=== PATIENT | male | born 1985 | race Hispanic/Latino ===

== ENCOUNTER 2020-05-04 21:35 | Inpatient (IN) | payer BC, SELFPAY ==
[2020-05-04] MEDS ORDERED: IPRATROPIUM BROM 0.5MG/2.5ML ONE (22:03)
[2020-05-04] MEDS ORDERED: NA CHLORIDE 0.9% 2,000 ML ONE (22:04)
[2020-05-04] MEDS ORDERED: CEFTRIAXONE/SWI 1gm 1 GM/10 ML SYR ONE (22:04)
[2020-05-04] MEDS ORDERED: AZITHROMYCIN 500 MG INJ IVPB ONE (22:04)
[2020-05-04] MEDS ORDERED: dexAMETHasone 10 MG/ML VIAL ONE (22:04)
[2020-05-04] MEDS ORDERED: NA CHLORIDE 0.9% 250 ML ONE (22:04)
[2020-05-04 22:22] LABS: Absolute Lymphocytes (CBC) 2.1 K/uL (0.7-4.9); Basophils % 0.3 % (0-1.3); Hematocrit 39.6 % (39.6-49.0); Lymphocytes % 8.6 % (15.3-44.8); MPV 8.2 fL (7.6-11.3); RBC Red Blood Cell Count 4.48 M/uL (4.33-5.43)
[2020-05-04] MEDS ORDERED: BUDESONIDE 0.25 MG/2 ML NEB ONE (22:28)
[2020-05-04 22:40] LABS: Protime INR 1.22
[2020-05-04 22:45] LABS: ALT/SGPT 65 U/L (12-78); AST/SGOT 70 U/L (15-37); Albumin 2.6 g/dL (3.4-5.0); Alkaline Phosphatase 107 U/L (45-117); Amylase 35 U/L (25-115); BUN Blood Urea Nitrogen 30 mg/dL (7-18); Bicarbonate 26 mmol/L (21-32); Bilirubin Direct 0.3 mg/dL (0-0.2); Bilirubin Total 0.6 mg/dL (0.2-1.0); CKMB Creatine Kinase MB < 1.0 ng/mL (0.3-3.6); Creatine Phosphokinase 153 U/L (39-308); Glucose Level 161 mg/dL (74-106); Lipase 101 U/L (73-393); NT PRO-BNP 1702 pg/mL (<125); Potassium 3.6 mmol/L (3.5-5.1); Protein, Total 7.9 g/dL (6.4-8.2); Sodium Level 128 mmol/L (136-145)
--- NOTE | 2020-05-04 23:21 | EDPHYS ---
Physician Documentation [facility] Name: Gil Yarbrough Age: 34 yrs Sex: Male : 1985 Arrival Date: 05/04/2020 Time: 21:36 Bed 2 Private MD: ED Physician Dickson Mejia HPI: 05/04 21:59 This 34 yrs old Male presents to ER via EMS with complaints of Respiratory mh7 Distress. 21:59 The patient has shortness of breath at rest. Onset: The symptoms/episode began/occurred mh7 4 day(s) ago, and became worse today. Duration: The symptoms are continuous, and are steadily getting worse. The patient's shortness of breath is aggravated by exertion, is alleviated by nothing. Associated signs and symptoms: Pertinent positives: productive cough, COVID 19 positive, Pertinent negatives: chest pain, non-productive cough, diaphoresis, dizziness, fever, hemoptysis, loss of consciousness, nausea, numbness in extremities, visual changes, vomiting. Severity of symptoms: At their worst the symptoms were severe today, in the emergency department the symptoms have improved markedly. The patient has been recently seen by a physician: the patient's primary care provider. Patient states that he has had SOB for 4 days that has progressively worsened. He tested positive for COVID 19 one week ago. EMS reported low O2 saturation in 40"s at scene which improved to 90"s on non rebreather.. Historical: - Allergies: 22:02 No Known Allergies; rr5 - PMHx: 22:02 Hypertension; COVID-19; rr5 - PSHx: 22:02 None; rr5 - Immunization history:: Adult Immunizations up to date. - Social history:: Smoking status: Patient reports the use of cigarette tobacco products, 2 CIGS PER DAY. ROS: 21:59 Constitutional: Negative for fever, chills, and weight loss, Eyes: Negative for injury, mh7 pain, redness, and discharge, ENT: Negative for injury, pain, and discharge, Neck: Negative for injury, pain, and swelling, Cardiovascular: Negative for chest pain, palpitations, and edema, Abdomen/GI: Negative for abdominal pain, nausea, vomiting, diarrhea, and constipation, Back: Negative for injury and pain, : Negative for injury, bleeding, discharge, and swelling, MS/Extremity: Negative for injury and deformity, Skin: Negative for injury, rash, and discoloration, Neuro: Negative for headache, weakness, numbness, tingling, and seizure, Psych: Negative for depression, anxiety, suicide ideation, homicidal ideation, and hallucinations, Allergy/Immunology: Negative for hives, rash, and allergies, Endocrine: Negative for neck swelling, polydipsia, polyuria, polyphagia, and marked weight changes, Hematologic/Lymphatic: Negative for swollen nodes, abnormal bleeding, and unusual bruising. Exam: 21:59 Head/Face: Normocephalic, atraumatic. Eyes: Pupils equal round and reactive to light, mh7 extra-ocular motions intact. Lids and lashes normal. Conjunctiva and sclera are non-icteric and not injected. Cornea within normal limits. Periorbital areas with no swelling, redness, or edema. Neck: Trachea midline, no thyromegaly or masses palpated, and no cervical lymphadenopathy. Supple, full range of motion without nuchal rigidity, or vertebral point tenderness. No Meningismus. Chest/axilla: Normal chest wall appearance and motion. Nontender with no deformity. No lesions are appreciated. 21:59 Abdomen/GI: Soft, non-tender, with normal bowel sounds. No distension or tympany. No guarding or rebound. No evidence of tenderness throughout. Back: No spinal tenderness. No costovertebral tenderness. Full range of motion. Skin: Warm, dry with normal turgor. Normal color with no rashes, no lesions, and no evidence of cellulitis. MS/ Extremity: Pulses equal, no cyanosis. Neurovascular intact. Full, normal range of motion. Neuro: Awake and alert, GCS 15, oriented to person, place, time, and situation. Cranial nerves II-XII grossly intact. Motor strength 5/5 in all extremities. Sensory grossly intact. Cerebellar exam normal. Normal gait. Psych: Awake, alert, with orientation to person, place and time. Behavior, mood, and affect are within normal limits. 21:59 Constitutional: The patient appears alert, awake, obese, in obvious distress, mildly distressed. 21:59 Cardiovascular: Rate: tachycardic, Rhythm: regular, Pulses: no pulse deficits are appreciated, Heart sounds: normal, normal S1and S2, Edema: is not appreciated, JVD: is not appreciated. 21:59 Respiratory: moderate respiratory distress is noted, Respirations: tachypnea, that is mild, Breath sounds: rhonchi, that are moderate, are scattered. 22:22 ECG was reviewed by the Attending Physician. [facility] Vital Signs: 21:49 Weight 156.49 kg; rr5 22:03 BP 127 / 88; Pulse 115; Resp 40; Temp 98.7; Pulse Ox 88% ; rr5 22:30 BP 127 / 88; Pulse 107; Resp 39; Pulse Ox 98% on 60% BiPAP; rr5 05/05 00:56 BP 127 / 92; Pulse 99; Resp 30; Pulse Ox 99% on 70% BiPAP; rr5 02:00 BP 133 / 92; Pulse 96; Resp 36; Temp 96; Pulse Ox 94% on 70% BiPAP; rr5 02:32 BP 132 / 86; Pulse 98; Resp 31; Temp 96.5; Pulse Ox 93% on 70% BiPAP; rr5 03:13 BP 146 / 95; Pulse 97; Resp 35; Temp 96.5; Pulse Ox 94% on 70% BiPAP; rr5 07:34 BP 131 / 87; Pulse 92; Resp 33; Pulse Ox 94% on BiPAP; jr10 MDM: 05/04 21:47 Patient medically screened. [facility] 23:17 Differential diagnosis: Anemia Anxiety Reaction asthma, Bronchitis CHF exacerbation, 7 Chronic Obstructive Pulmonary Disease Myocardial Infarction pneumonia, Pneumothorax pulmonary edema, Pulmonary Embolism Sepsis. Antibiotic administration: Rocephin and Zithromax given. Data reviewed: vital signs, nurses notes, EMS record, lab test result(s), cardiac enzymes, CBC, electrolytes, urinalysis, EKG, radiologic studies, CT scan, plain films. Data interpreted: hall monitor: rate is 107 beats/min, rhythm is sinus tachycardia, Interpretation: tachycardia, Pulse oximetry: on BiPAP is 95 %. Interpretation: acceptable. Counseling: I had a detailed discussion with the patient and/or guardian regarding: the historical points, exam findings, and any diagnostic results supporting the discharge/admit diagnosis, lab results, radiology results, the need for further work-up and treatment in the hospital. 05/04 21:48 Order name: Amylase, Serum; Complete Time: 22:46 [facility] 05/04 21:48 Order name: Basic Metabolic Panel; Complete Time: 22:46 [facility] 05/04 21:48 Order name: Blood Culture Adult (2) [facility] 05/04 21:48 Order name: CBC with Diff [facility] 05/04 21:48 Order name: Ckmb; Complete Time: 22:46 [facility] 05/04 21:48 Order name: CPK; Complete Time: 22:46 [facility] 05/04 21:48 Order name: Lactate; Complete Time: 22:36 [facility] 05/04 21:48 Order name: LFT's; Complete Time: 22:46 [facility] 05/04 21:48 Order name: Lipase; Complete Time: 22:46 [facility] 05/04 21:48 Order name: Procalcitonin [facility] 05/04 21:48 Order name: Protime (+inr); Complete Time: 23:09 [facility] 05/04 21:48 Order name: Ptt, Activated; Complete Time: 23:09 [facility] 05/04 21:48 Order name: Troponin (emerg Dept Use Only); Complete Time: 22:46 [facility] 05/04 21:48 Order name: Urine Microscopic Only [facility] 05/04 22:33 Order name: NT PRO-BNP; Complete Time: 22:46 [facility] 05/04 22:34 Order name: Glucose, Ancillary Testing; Complete Time: 22:36 [facility] 05/04 22:36 Order name: Manual Differential [facility] 05/05 01:20 Order name: Urine Microscopic Only rr5 05/05 01:24 Order name: Urine Dipstick--Ancillary (enter results) tt3 05/05 01:33 Order name: Urine Dipstick-Ancillary [facility] 05/05 01:47 Order name: Urine Microscopic Only [facility] 05/05 05:36 Order name: CBC with Automated Diff EDMS 05/05 06:03 Order name: Basic Metabolic Panel EDMS 05/05 06:03 Order name: Phosphorus EDMS 05/05 06:03 Order name: Magnesium EDMS 05/05 09:13 Order name: Glucose, Ancillary Testing EDMS 05/05 12:06 Order name: Glucose, Ancillary Testing EDMS 05/05 12:34 Order name: C-Reactive Protein EDMS 05/05 12:34 Order name: Ferritin [facility] 05/04 21:48 Order name: Chest Single View XRAY [facility] 05/04 21:48 Order name: Accucheck; Complete Time: 22:28 mh05/04 21:48 Order name: Cardiac monitoring; Complete Time: : 05/04 21:48 Order name: EKG - Nurse/Tech; Complete Time: : 05/04 21:48 Order name: IV Saline Lock - Large Bore; Complete Time: 22: 05/04 21:48 Order name: Labs collected and sent; Complete Time: 22: 05/04 21:48 Order name: O2 Per Protocol; Complete Time: : 05/04 21:48 Order name: O2 Sat Monitoring; Complete Time: 22: 05/04 21:48 Order name: Urine Dipstick-Ancillary (obtain specimen); Complete Time: 01:20 [facility] 05/04 22:29 Order name: BIPAP [facility] 05/04 22:46 Order name: CT Chest For PE Angio 05/05 00:45 Order name: CONS Physician Consult EDMS EC:22 Rate is 107 beats/min. Rhythm is regular, Sinus tachycardia. QRS Magazine is Normal. VT mh7 interval is normal. QRS interval is normal. QT interval is normal. No Q waves. T waves are Normal. No ST changes noted. Clinical impression: Sinus tachycardia. Administered Medications: 22:00 Drug: NS 0.9% (30 ml/kg) 30 ml/kg Route: IV; Rate: bolus; Site: left hand; rr5 23:00 Follow up: Response: No adverse reaction; IV Status: Order to discontinue infusion; IV rr5 Intake: 1000ml 22:00 Drug: Decadron - Dexamethasone 10 mg Route: IVP; Site: left hand; rr5 23:00 Follow up: Response: No adverse reaction rr5 22:10 Drug: Pulmicort 0.25 mg Route: Inhalation; rr5 23:15 Follow up: Response: No adverse reaction rr5 22:15 Drug: Rocephin - (cefTRIAXone) 1 grams Route: IVPB; Infused Over: 30 mins; Site: left rr5 hand; 23:00 Follow up: Response: No adverse reaction; IV Status: Completed infusion; IV Intake: [id number] 22:25 Dru mg of (Zithromax 500 mg, NS 0.9% 250 ml) Route: IVPB; Infused Over: 1 hrs; rr5 Site: left hand; 23:25 Follow up: Response: No adverse reaction; IV Status: Completed infusion; IV Intake: rr5 250ml Disposition: 05/04/20 23:20 Hospitalization ordered by Zaid Hutchison for Inpatient Admission. Preliminary diagnosis are Pneumonia, COVID 19, Hypoxia, Respiratory Distress. - Bed requested for Intensive Care Unit. - Status is Inpatient Admission. jr10 - Condition is Serious. - Problem is new. - Symptoms have improved. Signatures: Dispatcher [employer] [facility] Amol Arredondo, RN RN rBittney Marquez RN RN Lori Brown Blu Coreas RN RN rr5 Dickson Mejia MD MD 7 Heather Meredith RN RN jr10 Corrections: (The following items were deleted from the chart) 22:33 22:15 PROBNP+C.LAB.BRZ ordered. [facility] 05/05 01:06 05/04 23:20 Hospitalization Ordered by Zaid Hutchison for Inpatient Admission. Preliminary diagnosis is Pneumonia; COVID 19; Hypoxia; Respiratory Distress. Bed requested for Intensive Care Unit. Status is Inpatient Admission. Condition is Serious. Problem is new. Symptoms have improved. [facility] 05/05 12:25 01:06 05/04/2020 23:20 Hospitalization Ordered by Zaid Hutchison for Inpatient eb Admission. Preliminary diagnosis is Pneumonia; COVID 19; Hypoxia; Respiratory Distress. Bed requested for [facility] ER HOLD. Status is Inpatient Admission. Condition is Serious. Problem is new. Symptoms have improved. 13:38 12:25 05/04/2020 23:20 Hospitalization Ordered by Zaid Hutchison for Inpatient jr10 Admission. Preliminary diagnosis is Pneumonia; COVID 19; Hypoxia; Respiratory Distress. Bed requested for Intensive Care Unit. Status is Inpatient Admission. Condition is Serious. Problem is new. Symptoms have improved. eb
--- NOTE | 2020-05-04 23:21 | ER ---
Nurse's Notes [facility] Name: Gil Yarbrough Age: 34 yrs Sex: Male : 1985 Arrival Date: 05/04/2020 Time: 21:36 Bed 2 Private MD: Diagnosis: Pneumonia;COVID 19;Hypoxia;Respiratory Distress Presentation: 05/04 21:39 Chief complaint: EMS states: "Patient was diagnosed covid positive on Friday in [facility]. On Friday he started feeling more SOB today he feels like he can't breath, his O2 when we arrived was 48% on 6L nasal canula, after placing on a non-rebreather he sat at 76% with 40 Respirations.". Coronavirus screen: Patient reports a cough. Patient reports shortness of breath or difficulty breathing. Patient reports a measured and/or subjective temperature greater than 100.4F. Patient reports travel on a cruise ship or to a country the [facility] currently lists as an affected area. Patient reports contact with known and/or suspected case of COVID-19. Patient instructed to continue to wear a mask when interacting with others. Patient moved to private room, placed in contact and droplet isolation with eye protection until further assessment. Prior COVID test are currently unavailable. Ebola Screen: No symptoms or risks identified at this time. Risk Assessment: Do you want to hurt yourself or someone else? Patient reports no desire to harm self or others. Onset of symptoms was May 01, 2020. 21:39 Method Of Arrival: EMS: [facility] 21:39 Acuity: BREANNE 2 22:03 Initial Sepsis Screen: Does the patient meet any 2 criteria? RR > 20 per min. HR > 90 rr5 bpm. Yes Does the patient have a suspected source of infection? Yes: Other: COVID POSITIVE. Triage Assessment: 21:40 Respiratory: Onset: The symptoms/episode began/occurred gradually, the patient has rr5 moderate shortness of breath. Historical: - Allergies: 22:02 No Known Allergies; rr5 - PMHx: 22:02 Hypertension; COVID-19; rr5 - PSHx: 22:02 None; rr5 - Immunization history:: Adult Immunizations up to date. - Social history:: Smoking status: Patient reports the use of cigarette tobacco products, 2 CIGS PER DAY. Screenin:40 Abuse screen: Denies threats or abuse. Denies injuries from another. Nutritional rr5 screening: No deficits noted. Tuberculosis screening: No symptoms or risk factors identified. Fall Risk IV access (20 points). Total Morel Fall Scale indicates No Risk (0-24 pts). Assessment: 21:40 General: Appears distressed, uncomfortable, Behavior is calm, cooperative, appropriate rr5 for age. 21:40 Pain: Denies pain. Neuro: Level of Consciousness is awake, alert, obeys commands, rr5 Oriented to person, place, time, situation. Cardiovascular: Capillary refill < 3 seconds Patient's skin is warm and dry. Rhythm is sinus tachycardia. Respiratory: Reports shortness of breath at rest cough that is labored breathing Airway is patent Respiratory effort is even, labored, Respiratory pattern is regular, symmetrical, tachypnea GI: No signs and/or symptoms were reported involving the gastrointestinal system. : No signs and/or symptoms were reported regarding the genitourinary system. EENT: No signs and/or symptoms were reported regarding the EENT system. Derm: Skin temperature is warm. Musculoskeletal: Circulation, motion, and sensation intact. Capillary refill < 3 seconds. 22:30 Reassessment: Patient appears in no apparent distress at this time. Patient is alert, rr5 oriented x 3, equal unlabored respirations, skin warm/dry/pink. on BIPAP, oxygen saturation 98% Patient states symptoms have improved. 23:35 Reassessment: Patient appears in no apparent distress at this time. Patient is alert, rr5 oriented x 3, equal unlabored respirations, skin warm/dry/pink. awaiting for results. 05/05 00:00 Reassessment: Patient appears in no apparent distress at this time. Patient and/or rr5 family updated on plan of care and expected duration. Pain level reassessed. Patient is alert, oriented x 3, equal unlabored respirations, skin warm/dry/pink. 00:56 Reassessment: Patient appears in no apparent distress at this time. Patient is alert, rr5 oriented x 3, equal unlabored respirations, skin warm/dry/pink. awaiting for room assignment Patient states feeling better. Patient states symptoms have improved. 01:55 Reassessment: Patient appears in no apparent distress at this time. Patient is alert, rr5 oriented x 3, equal unlabored respirations, skin warm/dry/pink. Temperature checked T 96.0 F warm blanket given. 02:00 Reassessment: Patient and/or family updated on plan of care and expected duration. Pain rr5 level reassessed. updated for the plan of care over the phone. 02:31 Reassessment: Patient appears in no apparent distress at this time. Patient is alert, rr5 oriented x 3, equal unlabored respirations, skin warm/dry/pink. admitted under ER hold. 04:35 Reassessment: Patient appears in no apparent distress at this time. pt reports the Bed sg is hurting his back at this time, pt placed to a recliner chair, BiPap remains intact, pt reports chair feels much better, pt VSS at this time, resp rate still tachypneic, but reports feeling better. 07:34 Reassessment: Pt report received from EVELYN Hurt; prior to assessment pt sats noted to jr10 be 67%, upon entering room pt bipap mask noted to be incorrectly secured, mask resecured. Pt remains awake and alert. Sats noted to slowly increased after mask secured properly. Breath sounds clear bilaterally, NAND. Sats with bipap 94-95%. Call light placed in reach, pt instructed to call nurse if mask becomes unsecure again. Understanding verbalized. Updated on POC and ICU admission. Awaiting bed assignment at this time. Will continue to monitor and assess.. Vital Signs: 05/04 21:49 Weight 156.49 kg; rr5 22:03 BP 127 / 88; Pulse 115; Resp 40; Temp 98.7; Pulse Ox 88% ; rr5 22:30 BP 127 / 88; Pulse 107; Resp 39; Pulse Ox 98% on 60% BiPAP; rr5 05/05 00:56 BP 127 / 92; Pulse 99; Resp 30; Pulse Ox 99% on 70% BiPAP; rr5 02:00 BP 133 / 92; Pulse 96; Resp 36; Temp 96; Pulse Ox 94% on 70% BiPAP; rr5 02:32 BP 132 / 86; Pulse 98; Resp 31; Temp 96.5; Pulse Ox 93% on 70% BiPAP; rr5 03:13 BP 146 / 95; Pulse 97; Resp 35; Temp 96.5; Pulse Ox 94% on 70% BiPAP; rr5 07:34 BP 131 / 87; Pulse 92; Resp 33; Pulse Ox 94% on BiPAP; jr10 ED Course: 05/04 21:36 Patient arrived in ED. cf2 21:38 Dickson Mejia MD is Attending Physician. mh7 21:40 Patient has correct armband on for positive identification. Placed in gown. Bed in low rr5 position. Call light in reach. Side rails up X2. inspector exhaust emissions on. Pulse ox on. NIBP on. 21:40 Arm band placed on right wrist. rr5 21:46 Triage completed. vc 22:00 First set of blood cultures drawn by me. rr5 22:00 Inserted saline lock: 20 gauge in left hand, using aseptic technique. Blood collected. rr5 22:05 Blu Coreas RN is Primary Nurse. rr5 22:07 Chest Single View XRAY In Process Unspecified. EDMS 22:12 Initial Neb Treatment Given as ordered Patient was instructed and evaluated on rr5 procedure Patient tolerated procedure well without adverse effect. 22:15 Second set of blood cultures drawn by me. rr5 22:20 EKG done, by ED staff, reviewed by Dickson Mejia MD. rr5 22:30 Inserted saline lock: 22 gauge in right forearm, using aseptic technique. rr5 23:19 Zaid Hutchison is Hospitalizing Provider. [facility] 05/05 00:10 CT Chest For PE Angio In Process Unspecified. EDMS 02:31 No provider procedures requiring assistance completed. Patient admitted, IV remains in rr5 place. intact, No redness/swelling at site. 10:15 Primary Nurse role handed off by Blu Coreas RN jr10 10:15 Heather Meredith, EVELYN is Primary Nurse. jr10 13:38 Patient admitted, IV remains in place. intact, No redness/swelling at site. jr10 Administered Medications: 05/04 22:00 Drug: NS 0.9% (30 ml/kg) 30 ml/kg Route: IV; Rate: bolus; Site: left hand; rr5 23:00 Follow up: Response: No adverse reaction; IV Status: Order to discontinue infusion; IV rr5 Intake: 1000ml 22:00 Drug: Decadron - Dexamethasone 10 mg Route: IVP; Site: left hand; rr5 23:00 Follow up: Response: No adverse reaction rr5 22:10 Drug: Pulmicort 0.25 mg Route: Inhalation; rr5 23:15 Follow up: Response: No adverse reaction rr5 22:15 Drug: Rocephin - (cefTRIAXone) 1 grams Route: IVPB; Infused Over: 30 mins; Site: left rr5 hand; 23:00 Follow up: Response: No adverse reaction; IV Status: Completed infusion; IV Intake: [id number] 22:25 Dru mg of (Zithromax 500 mg, NS 0.9% 250 ml) Route: IVPB; Infused Over: 1 hrs; rr5 Site: left hand; 23:25 Follow up: Response: No adverse reaction; IV Status: Completed infusion; IV Intake: rr5 250ml Intake: 23:00 IV: 50ml; Total: 50ml. rr5 23:00 IV: 1000ml; Total: 1050ml. rr5 23:25 IV: 250ml; Total: 1300ml. rr5 05/05 02:00 PO: 240ml (Water); Total: 1540ml. rr5 Output: 01:30 Urine: 400ml (Voided); Total: 400ml. rr5 03:14 Urine: 700ml (Voided); Total: 1100ml. rr5 Outcome: 05/04 23:20 Decision to Hospitalize by Provider. [facility] 05/05 02:31 Admitted to ER Hold. Please see [facility] for further documentation. rr5 Condition: stable Instructed on the need for admit. 13:07 Admitted to ICU accompanied by nurse, accompanied by tech, via stretcher, room 5, with jr10 oxygen, on monitor, Report called to EVELYN Cortes 13:07 Condition: stable 13:07 Instructed on the need for admit, Demonstrated understanding of instructions. 13:38 Patient left the ED. jr10 Signatures: Dispatcher [employer] EDMS Amol Arredondo RN RN sg Roque, Raymond RN RN rr5 Anderson Garcia cf2 Lizbet Mensah RN RN vc Holmes, Maurice, MD MD [facility] Heather Meredith RN RN jr10 Corrections: (The following items were deleted from the chart) 02:02 00:56 BP 127 / 92; Pulse 99bpm; Resp 30bpm; Pulse Ox 99%; rr5 rr5 02:38 05/04 22:30 Inserted saline lock: 20 gauge in left hand, using aseptic technique. Blood rr5 collected. rr5
[2020-05-04 23:40] LABS: Blood Morphology Comment NOTED (NOT SEEN); Platelet Estimate ADEQ; Polychromasia 1+
--- NOTE | 2020-05-05 00:37 | P.HP ---
Certification for Inpatient Patient admitted to: Inpatient With expected LOS: >2 Midnights Practitioner: I am a practitioner with admitting privileges, knowledge of patient current condition, hospital course, and medical plan of care. Services: Services provided to patient in accordance with Admission requirements found in Title 42 Section 412.3 of the Code of Federal Regulations Patient History Date of Service: 05/05/20 Reason for admission: Shortness of breath History of Present Illness: 34-year-old gentleman with a history of hypertension was brought to the emergency department due to acute respiratory distress. Patient reports feeling sick about 9 days ago with sweats and fever. He went for the COVID test last week and the result came back on Friday as positive. Patient reports progressive shortness of breath and cough with occasional blood-stained sputum. He developed acute respiratory distress this evening. EMS was called and they found him with an oxygen saturation of 48% on room air and tachypneic. He was placed on 100% non-rebreather mask and brought to the ED. His chest x-ray in the ED demonstrated diffuse bilateral infiltrates. He has severe leukocytosis and meet criteria for sepsis. Patient is admitted for further management. - Past Medical/Surgical History -: Hypertension -: Obesity -: Borderline diabetes - Family History Father -: Hypertension Mother -: Cancer (breast) - Social History Alcohol use: No CD- Drugs: No Place of Residence: Home Review of Systems Other: Except as documented, all other systems reviewed and negative. Physical Examination - Physical Exam General: Alert, Oriented x3, Mild distress (Respiratory distress) HEENT: PERRLA, Mucous membr. moist/pink, Sclerae nonicteric Neck: JVD not distended Respiratory: Normal air movement, Crackles/rales (Bilateral) Cardiovascular: No edema, Regular rate/rhythm, Normal S1 S2 Capillary refill: <2 Seconds Gastrointestinal: Normal bowel sounds, Soft and benign, No tenderness Musculoskeletal: No swelling, No erythema Integumentary: No rashes Neurological: Normal strength at 5/5 x4 extr, Cranial nerves 3-12 intact - Studies Laboratory Data (last 24 hrs) 05/04/20 22:00: PT 14.3 H, INR 1.22, APTT 27.3 05/04/20 22:00: WBC 25.0 H*, Hgb 13.6, Hct 39.6, Plt Count 490 H 05/04/20 22:00: Sodium 128 L, Potassium 3.6, BUN 30 H, Creatinine 1.07, Glucose 161 H, Total Bilirubin 0.6, AST 70 H, ALT 65, Alkaline Phosphatase 107, Amylase 35, Lipase 101 Assessment and Plan - Problems (Diagnosis) (1) Viral pneumonia Current Visit: Yes Status: Acute (2) Acute on chronic respiratory failure with hypoxia Current Visit: Yes Status: Acute (3) COVID-19 Current Visit: Yes Status: Acute (4) Hypertension Current Visit: Yes Status: Acute (5) Obesity Current Visit: Yes Status: Acute - Plan Admit to ICU High-flow oxygen. Intermittent BiPAP as needed. Start IV dexamethasone IV Zithromax Intermittent IV Lasix Patient may be a candidate for convalescent plasma. Pulmonary consult. - Advance Directives Does patient have a Living Will: No Does patient have a Durable POA for Healthcare: No
[2020-05-05 01:33] LABS: Urine Blood TRACE (NEG); Urine Glucose NEGATIVE (NEG); Urine Protein 1+ (NEG); Urine Specific Gravity 1.015 (1.005-1.030); Urine pH 5.5 (5.0-7.0)
[2020-05-05 01:47] LABS: Urine Bacteria 20-50 /HPF (NONE SEEN); Urine Culture Reflex Order REFLEXED; Urine Mucus 1+ /HPF (NONE SEEN); Urine RBC <5 /HPF (NONE SEEN)
[2020-05-05] MEDS ORDERED: dexAMETHasone 10 MG/ML VIAL IV SCH (03:29)
[2020-05-05] MEDS ORDERED: FUROSEMIDE 40 MG/4 ML VIAL IV ONE (03:29)
[2020-05-05] MEDS ORDERED: dexAMETHasone 4 MG/ML VIAL ONE ×2 (03:46→09:43)
[2020-05-05 05:28] LABS: Absolute Lymphocytes (CBC) 1.4 K/uL (0.7-4.9); Basophils % 0.4 % (0-1.3); MPV 8.2 fL (7.6-11.3)
[2020-05-05 06:03] LABS: BUN Blood Urea Nitrogen 25 mg/dL (7-18); Bicarbonate 26 mmol/L (21-32); Glucose Level 204 mg/dL (74-106); Magnesium 2.6 mg/dL (1.8-2.4); Sodium Level 130 mmol/L (136-145)
[2020-05-05] MEDS: INSULIN -REGULAR HUMAN 50 UNIT/0.5 ML ML SQ SCH ×4 (07:30→20:21)
--- NOTE | 2020-05-05 08:21 | RAD REPORT ---
EXAM DESCRIPTION: RAD - Chest Single View - 05/04/2020 10:06 pm CLINICAL HISTORY: SOB, positive COVID test, worsening respiratory symptoms COMPARISON: None TECHNIQUE: AP portable chest image was obtained 05/04/2020 10:06 pm . FINDINGS: Lung volumes are low. Large body habitus and portable technique contribute to exaggeration of chest findings. The patient does have dense airspace opacification throughout the mid and lower lung virgen with rela tive sparing of each apex. This is a peripheral distribution pattern. With the provided history, find ings are consistent with a moderately severe COVID-19 pneumonia pattern. Cardiomediastinal silhouette is prominent but within normal limits for exam limitations. Vasculature within normal limits. No measurable pleural effusion and no pneumothorax. No acute bony abnormality seen. No acute aortic findings suspected. IMPRESSION: Moderately severe COVID-19 pneumonia pattern with prominent airspace opacification in th e mid and lower lung virgen.
[2020-05-05] MEDS: SPIRONOLACTONE 25 MG TABLET PO SCH (09:00)
[2020-05-05] MEDS ORDERED: dexAMETHasone 4 MG/ML VIAL IV SCH (09:00)
[2020-05-05] MEDS ORDERED: ENOXAPARIN 40 MG/0.4 ML SQ SCH (09:00)
[2020-05-05] MEDS ORDERED: ENOXAPARIN 40 MG/0.4 ML SQ ONE (09:43)
[2020-05-05] MEDS: ACETYLCYST 20% 800 MG/4 ML VIAL PO SCH ×2 (11:27→20:21)
[2020-05-05] MEDS: MULTIVITAMIN TAB PO SCH (11:28)
--- NOTE | 2020-05-05 11:32 | P.CNS ---
Date of Consult: 05/05/20 Reason for Consult: Respiratory failure from gregg virus infection Chief Complaint: Respiratory failure History of Present Illness: Patient is 34 years of age with a history of hypertension admitted with acute respiratory distress this gregg virus positive admitted with respiratory failure bilateral infiltrates hypoxemia is currently on BiPAP unable to lie down Allergies No Known Allergies Allergy (Unverified 05/05/20 03:29) Home Medications: Amlodipine Besylate/Benazepril [Amlodipine-Benazepril 10-20 mg] 1 each PO DAILY 05/05/20 - Past Medical/Surgical History -: Hypertension -: Obesity -: Borderline diabetes - Family History Father Medical History: Hypertension Mother Medical History: Cancer (breast) - Social History Alcohol use: No CD- Drugs: No Place of Residence: Home Review of Systems Respiratory: Shortness of Breath Physical Examination Temp Pulse Resp BP Pulse Ox 97.2 F 92 H 34 H 112/72 95 05/05/20 07:00 05/05/20 11:00 05/05/20 11:00 05/05/20 11:00 05/05/20 11:00 General: Other (Deferred due to gregg virus) Laboratory Data (last 24 hrs) 05/04/20 22:00: PT 14.3 H, INR 1.22, APTT 27.3 05/04/20 22:00: WBC 25.0 H*, Hgb 13.6, Hct 39.6, Plt Count 490 H 05/04/20 22:00: Sodium 128 L, Potassium 3.6, BUN 30 H, Creatinine 1.07, Glucose 161 H, Total Bilirubin 0.6, AST 70 H, ALT 65, Alkaline Phosphatase 107, Amylase 35, Lipase 101 - Problems (1) Acute on chronic respiratory failure with hypoxia Current Visit: Yes Status: Acute Plan: Patient is 34 years of age admitted with acute respiratory failure secondary to gregg virus bilateral pulmonary infiltrates benefit redesmir, convalescent plasma patient is on diuretics will increase EPAP multi vitamins Mucomyst steroids. PT informed about resdesmir and COVI plasma
[2020-05-05 12:34] LABS: Ferritin 440.2 ng/mL (26-388)
[2020-05-05] MEDS ORDERED: Remdesivir 200 MG in NA CHLORIDE 0.9% 250 ML IV ONE (13:00)
[2020-05-05] MEDS: ACETAMINOPHEN 500 MG TAB PO PRN (14:44)
--- NOTE | 2020-05-05 15:25 | EKG ---
Test Date: 2020-05-04 Test Time: 22:17:42 Cotton Agent: AER MEASUREMENT RESULTS: Intervals: Rate: 107 FL: 146 QRSD: 102 QT: 358 QTc: 477 [place]: P: 51 FL: 146 QRS: 19 T: 30 INTERPRETIVE STATEMENTS: Sinus tachycardia Otherwise normal ECG Electronically Signed On 05-05-20 15:24:07 CDT by Estevan Sawant
--- NOTE | 2020-05-05 17:27 | RAD REPORT ---
EXAM DESCRIPTION: CT - Chest For Pe Angio - 05/05/2020 7:03 am CLINICAL HISTORY: 34 years Male SOB TECHNIQUE: Contiguous axial images obtained through the chest were obtained from the thoracic inlet to the level of the upper abdomen during the pulmonary arterial phase of intravenous contrast adminis tration. Coronal and sagittal reformatted and bilateral coronal oblique MIP images provided. This CT exam was performed according to our departmental dose-optimization program, which includes on e or more of the following dose reduction techniques: automated exposure control, adjustment of the m A and/or kV according to patient size, and/or use of iterative reconstruction technique. COMPARISON: No prior exams provided for comparison. FINDINGS: There is no visualized pulmonary embolus however small peripheral pulmonary emboli cannot be completely excluded due to patient motion. The thoracic aorta is normal without aneurysm or dissection. The heart is normal in size without jeny cardial effusion. There are confluent airspace infiltrates throughout the majority of both lungs with air bronchograms. Trace left pleural fluid. No pneumothorax. The central airways are patent. Shotty, likely reactive m ediastinal lymph nodes. There are no visualized acute osseous or upper abdominal abnormalities. IMPRESSION: No visualized pulmonary embolus however small peripheral emboli cannot be excluded due t o patient motion. Confluent airspace infiltrates throughout the majority of both lungs with trace left pleural fluid. Imaging features can be seen with Covid 19 pneumonia, though are nonspecific and can occur with a va riety of infectious and noninfectious processes. PneInd Electronically signed by: Betty Prince MD 05/05/2020 12:32 AM CDT Due to temporary technical issues with the PACS/Fluency reporting system, reports are being signed by the in house radiologistwithout review asa courtesy toensure prompt reporting. The interpreting radi ologist is fully responsible for the content of the report.
[2020-05-05] MEDS: dexAMETHasone 4 MG/ML VIAL IV SCH (17:55)
[2020-05-05] MEDS: APIXABAN 5 MG TABLET PO SCH (20:22)
[2020-05-05] MEDS ORDERED: NA CHLORIDE 0.9% 0 ML ONE (20:39)
[2020-05-05] MEDS ORDERED: NA CHLORIDE 0.9% 250 ML ONE (20:41)
[2020-05-05] MEDS: BUDESONIDE 0.5 MG/2 ML NEB NEB SCH (20:49)
[2020-05-05] MEDS ORDERED: AZITHROMYCIN 500 MG INJ IVPB ONE (20:57)
[2020-05-05] MEDS ORDERED: AZITHROMYCIN IV 500 MG in NA CHLORIDE 0.9% 250 ML IVPB SCH (21:00)
[2020-05-06] MEDS: dexAMETHasone 4 MG/ML VIAL IV SCH ×3 (00:33→17:22)
[2020-05-06] MEDS: ACETAMINOPHEN 500 MG TAB PO PRN ×2 (04:39→15:07)
[2020-05-06 05:30] LABS: ALT/SGPT 85 U/L (12-78); AST/SGOT 99 U/L (15-37); Albumin 2.7 g/dL (3.4-5.0); Alkaline Phosphatase 101 U/L (45-117); Bilirubin Direct 0.2 mg/dL (0-0.2); Bilirubin Total 0.5 mg/dL (0.2-1.0); Protein, Total 7.7 g/dL (6.4-8.2)
[2020-05-06] MEDS: BUDESONIDE 0.5 MG/2 ML NEB NEB SCH ×2 (07:55→20:50)
[2020-05-06 08:37] LABS: Absolute Lymphocytes (CBC) 0.9 K/uL (0.7-4.9); Basophils % 0.7 % (0-1.3); Hematocrit 38.8 % (39.6-49.0); Lymphocytes % 4.1 % (15.3-44.8); RBC Red Blood Cell Count 4.31 M/uL (4.33-5.43)
[2020-05-06] MEDS: MULTIVITAMIN TAB PO SCH (08:44)
[2020-05-06] MEDS: SPIRONOLACTONE 25 MG TABLET PO SCH (08:44)
[2020-05-06] MEDS: INSULIN -REGULAR HUMAN 50 UNIT/0.5 ML ML SQ SCH ×4 (08:45→21:21)
[2020-05-06] MEDS: APIXABAN 5 MG TABLET PO SCH ×2 (08:45→21:03)
[2020-05-06] MEDS: ACETYLCYST 20% 800 MG/4 ML VIAL PO SCH ×2 (08:47→21:00)
[2020-05-06 08:58] LABS: ALT/SGPT 93 U/L (12-78); AST/SGOT 115 U/L (15-37); Albumin 2.7 g/dL (3.4-5.0); Alkaline Phosphatase 96 U/L (45-117); BUN Blood Urea Nitrogen 25 mg/dL (7-18); Bicarbonate 30 mmol/L (21-32); Bilirubin Total 0.5 mg/dL (0.2-1.0); Glucose Level 187 mg/dL (74-106); Potassium 4.1 mmol/L (3.5-5.1); Protein, Total 7.6 g/dL (6.4-8.2); Sodium Level 138 mmol/L (136-145)
[2020-05-06] MEDS ORDERED: FUROSEMIDE 20 MG/ 2ML VIAL IV SCH (09:00)
[2020-05-06] MEDS: Remdesivir 100 MG in NA CHLORIDE 0.9% 250 ML IV SCH (10:18)
--- NOTE | 2020-05-06 10:19 | P.PN ---
Subjective Date of Service: 05/06/20 (Telephone visit) Chief Complaint: Respiratory failure No change On BIPAP. O2 requirement decreasing Physical Examination - Vital Signs Temperature: 96.9 F Blood Pressure: 87/63 Pulse: 77 Respirations: 27 Pulse Ox (%): 96 Assessment & Plan - Problems (Diagnosis) (1) Acute on chronic respiratory failure with hypoxia Current Visit: Yes Status: Acute Plan: Resp failure. Ferrtin low. CW wean doem O2 S/p Plasma and Resdesmir WBC elevated. D/C Lasix. WBC elevated add IV levaquin
--- NOTE | 2020-05-06 10:31 | P.PN ---
Subjective Date of Service: 05/06/20 Chief Complaint: Respiratory failure Subjective: No new changes, Other (On bipap) Review of Systems 10-point ROS is otherwise unremarkable Physical Examination - Vital Signs Temperature: 96.9 F Blood Pressure: 87/63 Pulse: 77 Respirations: 27 Pulse Ox (%): 96 - Physical Exam General: Alert, In no apparent distress HEENT: Atraumatic, Normocephalic Neck: 2+ carotid pulse no bruit, JVD not distended Respiratory: Diminished, Crackles/rales Cardiovascular: Regular rate/rhythm, Normal S1 S2 Capillary refill: <2 Seconds Gastrointestinal: Soft and benign, W/out hepatosplenomegaly Musculoskeletal: No clubbing, No swelling Integumentary: No rashes Neurological: Normal speech, Normal strength at 5/5 x4 extr Lymphatics: No axilla or inguinal lymphadenopathy Assessment & Plan - Problems (Diagnosis) (1) Acute on chronic respiratory failure with hypoxia Current Visit: Yes Status: Acute (2) COVID-19 Current Visit: Yes Status: Acute (3) Hypertension Current Visit: Yes Status: Acute (4) Obesity Current Visit: Yes Status: Acute (5) Viral pneumonia Current Visit: Yes Status: Acute Physician Review Additional Text: Admit to ICU High-flow oxygen. Intermittent BiPAP as needed. Start IV dexamethasone IV Zithromax Intermittent IV Lasix Patient may be a candidate for convalescent plasma. Pulmonary consult. 05/06/2020 On BiPAP Appreciate help from pulmonology Getting COVID Convalescent plasma Continue steroid Remdesivir Leukocytosis noted Will monitor CRP, ferritin Mild increase in liver functions Monitor CMP daily Monitor renal parameters Guarded prognosis Time Spent Managing Pts Care (In Minutes): 45
[2020-05-06 10:41] LABS: Blood Gas Oxyhemoglobin 85.7 % (94-97); Blood O2 Saturation 87.4 % (92-98.5)
[2020-05-06] MEDS: Levofloxacin500mg IV 500 MG/100 ML BAG IV SCH (12:02)
[2020-05-06 13:45] LABS: C-Reactive Protein 83.7 mg/L (<3.00); Ferritin 413.5 ng/mL (26-388)
[2020-05-06] MEDS ORDERED: NA CHLORIDE 0.9% 100 ML ONE (15:57)
[2020-05-07] MEDS: dexAMETHasone 4 MG/ML VIAL IV SCH (00:19)
[2020-05-07 06:13] LABS: ALT/SGPT 137 U/L (12-78); AST/SGOT 148 U/L (15-37); Albumin 2.7 g/dL (3.4-5.0); Alkaline Phosphatase 101 U/L (45-117); Bilirubin Direct 0.2 mg/dL (0-0.2); Bilirubin Total 0.5 mg/dL (0.2-1.0); Protein, Total 7.2 g/dL (6.4-8.2)
[2020-05-07] MEDS: BUDESONIDE 0.5 MG/2 ML NEB NEB SCH ×2 (08:19→21:00)
[2020-05-07] MEDS: INSULIN -REGULAR HUMAN 50 UNIT/0.5 ML ML SQ SCH ×4 (08:32→21:15)
[2020-05-07] MEDS: METHYLPREDNISOLONE 40 MG INJ IV SCH ×2 (08:32→20:40)
[2020-05-07] MEDS: ZINC SULFATE 220 MG CAP PO SCH (08:32)
[2020-05-07] MEDS: APIXABAN 5 MG TABLET PO SCH ×2 (08:33→20:38)
[2020-05-07] MEDS: MULTIVITAMIN TAB PO SCH (08:33)
[2020-05-07] MEDS: ATORVASTATIN 40 MG TAB PO SCH ×2 (08:33→20:38)
[2020-05-07] MEDS: SPIRONOLACTONE 25 MG TABLET PO SCH ×2 (08:33→20:38)
[2020-05-07] MEDS: ASCORBIC ACID 500 MG TABLET PO SCH ×3 (08:33→20:38)
[2020-05-07] MEDS: Remdesivir 100 MG in NA CHLORIDE 0.9% 250 ML IV SCH (09:10)
--- NOTE | 2020-05-07 10:17 | P.PN ---
Subjective Date of Service: 05/07/20 Chief Complaint: Respiratory failure Subjective: No new changes, Improving, Other (Mild improvement in breathing) Review of Systems 10-point ROS is otherwise unremarkable Physical Examination - Vital Signs Temperature: 96.9 F Blood Pressure: 154/106 Pulse: 82 Respirations: 24 Pulse Ox (%): 92 - Physical Exam General: Alert, In no apparent distress, Obese HEENT: Atraumatic, Normocephalic Neck: Supple, 2+ carotid pulse no bruit Respiratory: Diminished, Crackles/rales Cardiovascular: Normal pulses, Regular rate/rhythm, Normal S1 S2 Capillary refill: <2 Seconds Gastrointestinal: Soft and benign, W/out hepatosplenomegaly Musculoskeletal: No clubbing, No swelling Integumentary: No rashes, No tenderness/swelling Neurological: Normal speech, Normal strength at 5/5 x4 extr Lymphatics: No axilla or inguinal lymphadenopathy Assessment & Plan - Problems (Diagnosis) (1) Acute on chronic respiratory failure with hypoxia Current Visit: Yes Status: Acute (2) COVID-19 Current Visit: Yes Status: Acute (3) Hypertension Current Visit: Yes Status: Acute (4) Obesity Current Visit: Yes Status: Acute (5) Viral pneumonia Current Visit: Yes Status: Acute Physician Review Additional Text: Acute hypoxic respiratory failure Covid 19 pneumonia Admit to ICU High-flow oxygen. Intermittent BiPAP as needed. Start IV dexamethasone IV Zithromax Intermittent IV Lasix Patient may be a candidate for convalescent plasma. Pulmonary consult. 05/06/2020 On BiPAP Appreciate help from pulmonology Getting COVID Convalescent plasma Continue steroid Remdesivir Leukocytosis noted Will monitor CRP, ferritin Mild increase in liver functions Monitor CMP daily Monitor renal parameters 05/07/2020 Feeling slightly better Appreciate help from pulmonology Status was convalescent plasma, Remdesivir and steroid Monitor renal parameters LFTs monitored Leukocytosis still present Try to wean off oxygen requirement Insulin sliding scale Will titrate antihypertensives Time Spent Managing Pts Care (In Minutes): 45
--- NOTE | 2020-05-07 10:20 | RAD REPORT ---
EXAM DESCRIPTION: [facility] Single View05/07/2020 7:10 am CLINICAL HISTORY: Shortness of breath COMPARISON: May 04 FINDINGS: No significant change in the extensive bilateral alveolar opacities The heart is mildly enlarged IMPRESSION: No significant change in the extensive bilateral pneumonia
[2020-05-07] MEDS: Levofloxacin500mg IV 500 MG/100 ML BAG IV SCH (12:44)
--- NOTE | 2020-05-07 12:51 | P.PN ---
Subjective Date of Service: 05/07/20 Chief Complaint: Respiratory failure Condition stable still requiring high concentrations of oxygen Physical Examination - Vital Signs Temperature: 96.9 F Blood Pressure: 154/106 Pulse: 82 Respirations: 24 Pulse Ox (%): 92 Assessment & Plan - Problems (Diagnosis) (1) Acute on chronic respiratory failure with hypoxia Current Visit: Yes Status: Acute Plan: Respiratory failure CRP is declining increase the dose of IV steroids had additional oral supplements he still fairly extensive bilateral changes blood pressure elevated hypertension had amlodipine patient is on spironolactone
[2020-05-07] MEDS: AMLODIPINE 5 MG TAB PO SCH (14:17)
[2020-05-07] MEDS: HYDRALAZINE HCL 20 MG/ML VIAL IV PRN ×2 (15:50→20:41)
[2020-05-07] MEDS: MELATONIN 3 MG TABLET PO SCH (20:40)
[2020-05-08 05:01] LABS: ALT/SGPT 152 U/L (12-78); AST/SGOT 97 U/L (15-37); Albumin 2.9 g/dL (3.4-5.0); Alkaline Phosphatase 113 U/L (45-117); BUN Blood Urea Nitrogen 20 mg/dL (7-18); Bicarbonate 25 mmol/L (21-32); Bilirubin Direct 0.2 mg/dL (0-0.2); Bilirubin Total 0.5 mg/dL (0.2-1.0); Glucose Level 230 mg/dL (74-106); Magnesium 2.3 mg/dL (1.8-2.4); Phosphorus 5.4 mg/dL (2.5-4.9); Potassium 4.8 mmol/L (3.5-5.1); Protein, Total 7.5 g/dL (6.4-8.2); Sodium Level 136 mmol/L (136-145)
[2020-05-08] MEDS: BUDESONIDE 0.5 MG/2 ML NEB NEB SCH ×2 (08:24→20:00)
[2020-05-08] MEDS: INSULIN -REGULAR HUMAN 50 UNIT/0.5 ML ML SQ SCH ×4 (08:34→20:28)
[2020-05-08] MEDS: SPIRONOLACTONE 25 MG TABLET PO SCH ×2 (08:35→20:29)
[2020-05-08] MEDS: ZINC SULFATE 220 MG CAP PO SCH (08:35)
[2020-05-08] MEDS: ASCORBIC ACID 500 MG TABLET PO SCH ×3 (08:35→20:29)
[2020-05-08] MEDS: MULTIVITAMIN TAB PO SCH (08:36)
[2020-05-08] MEDS: APIXABAN 5 MG TABLET PO SCH ×2 (08:36→20:30)
[2020-05-08] MEDS: AMLODIPINE 5 MG TAB PO SCH (08:36)
[2020-05-08] MEDS: AMLODIPINE 10 MG TAB PO SCH (08:50)
[2020-05-08] MEDS ORDERED: HOME MED 1 EA UNK (Amlodipine Besylate/Benazepril [Amlodipine-Benazepril 10-20 Mg] 1 EACH) PO SCH (09:00)
--- NOTE | 2020-05-08 09:54 | P.PN ---
Subjective Date of Service: 05/08/20 Chief Complaint: Respiratory failure Subjective: No new changes Review of Systems 10-point ROS is otherwise unremarkable Physical Examination - Vital Signs Temperature: 97 F Blood Pressure: 116/115 Pulse: 75 Respirations: 25 Pulse Ox (%): 97 - Physical Exam General: Alert, Oriented x3, Mild distress, Obese HEENT: Atraumatic, Normocephalic Neck: Supple Respiratory: Diminished, Crackles/rales Cardiovascular: Regular rate/rhythm, Normal S1 S2 Capillary refill: <2 Seconds Gastrointestinal: Soft and benign, W/out hepatosplenomegaly Musculoskeletal: No clubbing Integumentary: No rashes Neurological: Normal speech, Normal strength at 5/5 x4 extr Lymphatics: No axilla or inguinal lymphadenopathy Assessment & Plan - Problems (Diagnosis) (1) Acute on chronic respiratory failure with hypoxia Current Visit: Yes Status: Acute (2) COVID-19 Current Visit: Yes Status: Acute (3) Hypertension Current Visit: Yes Status: Acute (4) Obesity Current Visit: Yes Status: Acute (5) Viral pneumonia Current Visit: Yes Status: Acute Physician Review Additional Text: Acute hypoxic respiratory failure Covid 19 pneumonia Admit to ICU High-flow oxygen. Intermittent BiPAP as needed. Start IV dexamethasone IV Zithromax Intermittent IV Lasix Patient may be a candidate for convalescent plasma. Pulmonary consult. 05/06/2020 On BiPAP Appreciate help from pulmonology Getting COVID Convalescent plasma Continue steroid Remdesivir Leukocytosis noted Will monitor CRP, ferritin Mild increase in liver functions Monitor CMP daily Monitor renal parameters 05/08/2020 patient still on high-flow Will try to wean off oxygen Appreciate help from pulmonology Patient sitting comfortably in a recliner Status was convalescent plasma, Remdesivir and steroid Monitor renal parameters LFTs monitored Insulin sliding scale Will titrate antihypertensives as the blood pressure is still elevated Time Spent Managing Pts Care (In Minutes): 42
[2020-05-08] MEDS: METHYLPREDNISOLONE 40 MG INJ IV SCH (09:58)
[2020-05-08] MEDS: Remdesivir 100 MG in NA CHLORIDE 0.9% 250 ML IV SCH (09:58)
[2020-05-08] MEDS: Levofloxacin500mg IV 500 MG/100 ML BAG IV SCH (11:31)
[2020-05-08] MEDS ORDERED: METHYLPREDNISOLONE 40 MG INJ IV ONE (12:14)
[2020-05-08] MEDS ORDERED: FUROSEMIDE 20 MG/ 2ML VIAL IV ONE (12:17)
--- NOTE | 2020-05-08 12:18 | P.PN ---
Subjective Date of Service: 05/08/20 Chief Complaint: Respiratory failure Patient is improving on high-flow nasal cannula oxygen Physical Examination - Vital Signs Temperature: 97 F Blood Pressure: 116/115 Pulse: 75 Respirations: 25 Pulse Ox (%): 97 Assessment & Plan - Problems (Diagnosis) (1) Acute on chronic respiratory failure with hypoxia Current Visit: Yes Status: Acute Plan: Patient is clinically improving will give an additional dose of steroid today to help him wean off the oxygen other was no change in present therapy blood pressure is still elevated
[2020-05-08] MEDS: HYDRALAZINE HCL 20 MG/ML VIAL IV PRN ×2 (13:31→23:36)
[2020-05-08] MEDS: HYDRALAZINE HCL 25 MG TABLET PO SCH ×2 (13:47→20:29)
[2020-05-08] MEDS: METHYLPREDNISOLONE 125 MG INJ IV SCH (20:28)
[2020-05-08] MEDS: ATORVASTATIN 40 MG TAB PO SCH (20:29)
[2020-05-08] MEDS: MELATONIN 3 MG TABLET PO SCH (20:29)
[2020-05-09 06:22] LABS: ALT/SGPT 154 U/L (12-78); AST/SGOT 59 U/L (15-37); Alkaline Phosphatase 89 U/L (45-117); Bilirubin Direct 0.2 mg/dL (0-0.2); Bilirubin Total 0.6 mg/dL (0.2-1.0); C-Reactive Protein 7.01 mg/L (<3.00); Protein, Total 7.5 g/dL (6.4-8.2)
[2020-05-09] MEDS: INSULIN -REGULAR HUMAN 50 UNIT/0.5 ML ML SQ SCH ×4 (08:19→20:12)
[2020-05-09] MEDS: HYDRALAZINE HCL 20 MG/ML VIAL IV PRN ×2 (08:21→12:29)
[2020-05-09] MEDS: BUDESONIDE 0.5 MG/2 ML NEB NEB SCH ×2 (08:45→20:05)
[2020-05-09] MEDS: HYDRALAZINE HCL 25 MG TABLET PO SCH ×3 (08:56→20:11)
[2020-05-09] MEDS: ASCORBIC ACID 500 MG TABLET PO SCH ×3 (08:56→20:11)
[2020-05-09] MEDS: AMLODIPINE 10 MG TAB PO SCH (08:56)
[2020-05-09] MEDS: levoFLOXacin 500 MG TAB PO SCH (08:56)
[2020-05-09] MEDS: METHYLPREDNISOLONE 125 MG INJ IV SCH ×2 (08:57→20:20)
[2020-05-09] MEDS: APIXABAN 5 MG TABLET PO SCH ×2 (08:57→20:11)
[2020-05-09] MEDS: MULTIVITAMIN TAB PO SCH (08:58)
[2020-05-09] MEDS: FUROSEMIDE 20 MG/ 2ML VIAL IV SCH ×2 (08:58→16:43)
[2020-05-09] MEDS: ZINC SULFATE 220 MG CAP PO SCH (08:58)
[2020-05-09] MEDS: SPIRONOLACTONE 25 MG TABLET PO SCH ×3 (09:00→20:11)
[2020-05-09] MEDS: Remdesivir 100 MG in NA CHLORIDE 0.9% 250 ML IV SCH (09:01)
--- NOTE | 2020-05-09 09:05 | P.PN ---
Subjective Date of Service: 05/09/20 Chief Complaint: Respiratory failure Subjective: No new changes, Improving Review of Systems 10-point ROS is otherwise unremarkable Physical Examination - Vital Signs Temperature: 96.9 F Blood Pressure: 152/95 Pulse: 96 Respirations: 24 Pulse Ox (%): 95 - Physical Exam General: Alert, In no apparent distress, Obese HEENT: Atraumatic, Normocephalic Neck: Supple, 2+ carotid pulse no bruit Respiratory: Diminished Cardiovascular: Regular rate/rhythm, Normal S1 S2 Capillary refill: <2 Seconds Gastrointestinal: Soft and benign, W/out hepatosplenomegaly Musculoskeletal: No clubbing, No swelling Integumentary: No rashes Neurological: Normal speech, Normal strength at 5/5 x4 extr Lymphatics: No axilla or inguinal lymphadenopathy Assessment & Plan - Problems (Diagnosis) (1) Acute on chronic respiratory failure with hypoxia Current Visit: Yes Status: Acute (2) COVID-19 Current Visit: Yes Status: Acute (3) Hypertension Current Visit: Yes Status: Acute (4) Obesity Current Visit: Yes Status: Acute (5) Viral pneumonia Current Visit: Yes Status: Acute Physician Review Additional Text: Acute hypoxic respiratory failure Covid 19 pneumonia 05/09/2020 Patient is sitting in the recliner doing well Will try to wean off oxygen Appreciate help from pulmonology Status was convalescent plasma, Remdesivir and steroid Monitor renal parameters LFTs monitored Insulin sliding scale Will titrate antihypertensives as the blood pressure is still elevated Will transfer out of ICU Monitor closely Continue anticoagulation Time Spent Managing Pts Care (In Minutes): 43
[2020-05-09] MEDS ORDERED: METHYLPREDNISOLONE 125 MG INJ IV ONE (12:32)
--- NOTE | 2020-05-09 12:35 | P.PN ---
Subjective Date of Service: 05/09/20 Chief Complaint: Respiratory failure Patient is not improving he has been weaned down to 6 L of nasal cannula oxygen Physical Examination - Vital Signs Temperature: 96.9 F Blood Pressure: 152/95 Pulse: 96 Respirations: 24 Pulse Ox (%): 95 - Physical Exam General: Alert, Oriented x3, Oriented x1 Assessment & Plan - Problems (Diagnosis) (1) Acute on chronic respiratory failure with hypoxia Current Visit: Yes Status: Acute Plan: Respiratory failure clinically improving additional dose of Solu-Medrol C- reactive protein is also low plan to set him up with home oxygen
[2020-05-09] MEDS: ATORVASTATIN 40 MG TAB PO SCH (20:10)
[2020-05-09] MEDS: MELATONIN 3 MG TABLET PO SCH (20:11)
[2020-05-10 06:10] VITALS: BMI 43.8
[2020-05-10] MEDS: MULTIVITAMIN TAB PO SCH (08:14)
[2020-05-10] MEDS: ASCORBIC ACID 500 MG TABLET PO SCH ×2 (08:14→14:58)
[2020-05-10] MEDS: ZINC SULFATE 220 MG CAP PO SCH (08:14)
[2020-05-10] MEDS: SPIRONOLACTONE 25 MG TABLET PO SCH (08:14)
[2020-05-10] MEDS: FUROSEMIDE 20 MG/ 2ML VIAL IV SCH ×2 (08:15→17:25)
[2020-05-10] MEDS: HYDRALAZINE HCL 25 MG TABLET PO SCH ×2 (08:15→14:58)
[2020-05-10] MEDS: APIXABAN 5 MG TABLET PO SCH (08:15)
[2020-05-10] MEDS: INSULIN -REGULAR HUMAN 50 UNIT/0.5 ML ML SQ SCH ×3 (08:16→17:24)
[2020-05-10] MEDS: levoFLOXacin 500 MG TAB PO SCH (08:16)
[2020-05-10] MEDS: METHYLPREDNISOLONE 125 MG INJ IV SCH (08:17)
[2020-05-10] MEDS: BUDESONIDE 0.5 MG/2 ML NEB NEB SCH (08:27)
[2020-05-10] MEDS ORDERED: METOPROLOL XL 50 MG TAB PO SCH (09:00)
[2020-05-10] MEDS ORDERED: HOME MED 1 EA UNK PO SCH ×3 (09:00)
[2020-05-10] MEDS ORDERED: BENAZEPRIL 20 MG TAB PO SCH (09:00)
[2020-05-10] MEDS ORDERED: AMLODIPINE 5 MG TAB PO SCH (09:00)
[2020-05-10 09:24] LABS: Absolute Lymphocytes (CBC) 1.1 K/uL (0.7-4.9); Basophils % 0.3 % (0-1.3); Hematocrit 48.4 % (39.6-49.0); Lymphocytes % 7.1 % (15.3-44.8); MPV 7.9 fL (7.6-11.3); RBC Red Blood Cell Count 5.37 M/uL (4.33-5.43)
[2020-05-10 09:48] LABS: ALT/SGPT 179 U/L (12-78); AST/SGOT 53 U/L (15-37); Albumin 3.4 g/dL (3.4-5.0); Alkaline Phosphatase 80 U/L (45-117); BUN Blood Urea Nitrogen 24 mg/dL (7-18); Bicarbonate 24 mmol/L (21-32); Bilirubin Total 0.7 mg/dL (0.2-1.0); Glucose Level 215 mg/dL (74-106); Potassium 4.3 mmol/L (3.5-5.1); Sodium Level 134 mmol/L (136-145)
--- NOTE | 2020-05-10 11:08 | P.PN ---
Subjective Date of Service: 05/10/20 Chief Complaint: Respiratory failure Subjective: No new changes, Improving Review of Systems 10-point ROS is otherwise unremarkable Physical Examination - Vital Signs Temperature: 97.7 F Blood Pressure: 134/88 Pulse: 95 Respirations: 25 Pulse Ox (%): 91 - Physical Exam General: Alert, In no apparent distress HEENT: Atraumatic, Normocephalic Neck: Supple Respiratory: Diminished, Crackles/rales Cardiovascular: Regular rate/rhythm, Normal S1 S2 Capillary refill: <2 Seconds Gastrointestinal: Soft and benign, W/out hepatosplenomegaly Musculoskeletal: No clubbing, No swelling Integumentary: No rashes Neurological: Normal speech, Normal strength at 5/5 x4 extr Lymphatics: No axilla or inguinal lymphadenopathy - Studies Microbiology Data (last 24 hrs): 05/04/20 22:15 Blood - Blood Aerobic Blood Culture - Final No growth in 5 days. 05/04/20 22:15 Blood - Blood Anaerobic Blood Culture - Final No growth in 5 days. 05/04/20 22:00 Blood - Blood Aerobic Blood Culture - Final No growth in 5 days. 05/04/20 22:00 Blood - Blood Anaerobic Blood Culture - Final No growth in 5 days. Assessment & Plan - Problems (Diagnosis) (1) Acute on chronic respiratory failure with hypoxia Current Visit: Yes Status: Acute (2) COVID-19 Current Visit: Yes Status: Acute (3) Hypertension Current Visit: Yes Status: Acute (4) Obesity Current Visit: Yes Status: Acute (5) Viral pneumonia Current Visit: Yes Status: Acute Physician Review Additional Text: Acute hypoxic respiratory failure Covid 19 pneumonia 05/09/2020 Patient is sitting in the recliner doing well Will try to wean off oxygen Appreciate help from pulmonology Status was convalescent plasma, Remdesivir and steroid Monitor renal parameters LFTs monitored Insulin sliding scale Will titrate antihypertensives as the blood pressure is still elevated Will transfer out of ICU Monitor closely Continue anticoagulation 05/10/2020 Clinically much better Weaning down the oxygen requirement adult services librarian consult for home O2 Monitor CBC and CMP daily Antihypertensives titrated continue home medications and titrate as needed Continue anticoagulation Possible Dc home once home oxygen is arranged Appreciate help from pulmonology Time Spent Managing Pts Care (In Minutes): 42
[2020-05-10 11:17] LABS: Blood Morphology Comment NOT SEEN (NOT SEEN); Platelet Estimate ADEQ; Urine White Blood Cell Casts OK
--- NOTE | 2020-05-10 12:34 | P.PN ---
Subjective Date of Service: 05/10/20 Chief Complaint: Respiratory failure patient is doing much better he has been weaned down to nasal cannula oxygen feeling better Review of Systems Respiratory: Shortness of Breath Physical Examination - Vital Signs Temperature: 97.7 F Blood Pressure: 134/88 Pulse: 95 Respirations: 25 Pulse Ox (%): 91 - Studies Microbiology Data (last 24 hrs): 05/04/20 22:15 Blood - Blood Aerobic Blood Culture - Final No growth in 5 days. 05/04/20 22:15 Blood - Blood Anaerobic Blood Culture - Final No growth in 5 days. 05/04/20 22:00 Blood - Blood Aerobic Blood Culture - Final No growth in 5 days. 05/04/20 22:00 Blood - Blood Anaerobic Blood Culture - Final No growth in 5 days. Assessment & Plan - Problems (Diagnosis) (1) Acute on chronic respiratory failure with hypoxia Current Visit: Yes Status: Acute Plan: clinically improving CRP level is nondetectable plan for discharge home on oxygen prednisone 20 mg twice a day in addition to multi vitamin supplements as per the map protocol follow-up with a telephone visit with me in 1 week was been a significant decline in his D-dimer is well white count is declining Dc levofloxacin blood pressure is now under control chest x-ray ordered plan for discharge continue with prone position ventilation
--- NOTE | 2020-05-10 14:17 | RAD REPORT ---
EXAM DESCRIPTION: RAD - Chest Single View - 05/10/2020 2:10 pm CLINICAL HISTORY: pneumonia, COVID-19 pneumonia COMPARISON: Portable May 07 TECHNIQUE: AP portable chest image was obtained 05/10/2020 2:10 pm . FINDINGS: The extensive peripheral airspace opacification seen on the comparison study has significa ntly improved. There is a significant amount of remnant airspace opacification. Heart size has dimini shed. Vasculature within normal limits. No measurable pleural effusion and no pneumothorax. No acute bony abnormality seen. No acute aortic findings suspected. IMPRESSION: Significant improvement in the bilateral pneumonia pattern since May 07.
[2020-05-10] MEDS ORDERED: METHYLPREDNISOLONE 125 MG INJ IV SCH (17:00)
[2020-05-10 17:44] VITALS: O2SAT 95
--- NOTE | 2020-05-10 17:44 | P.DS ---
Admission Date: 05/05/20 Discharge Date: 05/11/20 Disposition: ROUTINE DISCHARGE Reason for Admission: Respiratory failure - Problems (1) Acute on chronic respiratory failure with hypoxia Status: Acute (2) COVID-19 Status: Acute (3) Hypertension Status: Acute (4) Obesity Status: Acute (5) Viral pneumonia Status: Acute Brief History of Present Illness: 34-year-old gentleman with a history of hypertension was brought to the emergency department due to acute respiratory distress. Patient reports feeling sick about 9 days ago with sweats and fever. He went for the COVID test last week and the result came back on Friday as positive. Patient reports progressive shortness of breath and cough with occasional blood-stained sputum. He developed acute respiratory distress this evening. EMS was called and they found him with an oxygen saturation of 48% on room air and tachypneic. He was placed on 100% non-rebreather mask and brought to the ED. His chest x-ray in the ED demonstrated diffuse bilateral infiltrates. He has severe leukocytosis and meet criteria for sepsis. Patient is admitted for further management. Hospital Course: (1) Acute on chronic respiratory failure with hypoxia (2) COVID-19 (3) Hypertension (4) Obesity (5) Viral pneumonia Acute hypoxic respiratory failure due to Covid 19 pneumonia The patient was admitted and was monitor closely under telemetry in ICU patient was initiated on BiPAP went from weaned off of BiPAP and put on nasal cannula. Weaned down oxygen Appreciate help from pulmonology Status post convalescent plasma, Remdesivir and steroid Monitored renal parameters . LFTs monitored Insulin sliding scale Titrated antihypertensives Weaning down the oxygen requirement multimedia services coordinator consult for home O2 continue home medications and titrate as needed Continued anticoagulation Possible Dc home once home oxygen is arranged Vital Signs/Physical Exam: Temp Pulse Resp BP Pulse Ox 97.7 F 91 H 25 H 149/82 H 90 L 05/10/20 14:22 05/10/20 17:25 05/10/20 14:05/10/20 17:05/10/20 15:00 General: Alert, In no apparent distress HEENT: Atraumatic, Normocephalic Neck: Supple Respiratory: Clear to auscultation bilaterally Cardiovascular: Regular rate/rhythm, Normal S1 S2 Capillary refill: <2 Seconds Gastrointestinal: Soft and benign, W/out hepatosplenomegaly Musculoskeletal: No clubbing, No swelling Integumentary: No rashes Neurological: Normal strength at 5/5 x4 extr Lymphatics: No axilla or inguinal lymphadenopathy Laboratory Data at Discharge: WBC 15.3 K/uL (4.3-10.9) H D 05/10/20 08:45 Hgb 16.1 g/dL (13.6-17.9) D 05/10/20 08:45 Hct 48.4 % (39.6-49.0) D 05/10/20 08:45 Plt Count 396 K/uL (152-406) 05/10/20 08:45 PT 14.3 SECONDS (9.5-12.5) H 05/04/20 22:00 INR 1.22 05/04/20 22:00 APTT 27.3 SECONDS (24.3-36.9) 05/04/20 22:00 Sodium 134 mmol/L (136-145) L 05/10/20 08:45 Potassium 4.3 mmol/L (3.5-5.1) 05/10/20 08:45 BUN 24 mg/dL (7-18) H 05/10/20 08:45 Creatinine 0.78 mg/dL (0.55-1.3) 05/10/20 08:45 Glucose 215 mg/dL (74-106) H 05/10/20 08:45 Phosphorus 5.4 mg/dL (2.5-4.9) H 05/08/20 04:16 Magnesium 2.3 mg/dL (1.8-2.4) 05/08/20 04:16 Total Bilirubin 0.7 mg/dL (0.2-1.0) 05/10/20 08:45 AST 53 U/L (15-37) H 05/10/20 08:45 ALT 179 U/L (12-78) H 05/10/20 08:45 Alkaline Phosphatase 80 U/L (45-117) 05/10/20 08:45 Amylase 35 U/L (25-115) 05/04/20 22:00 Lipase 101 U/L (73-393) 05/04/20 22:00 Home Medications: Amlodipine Besylate/Benazepril [Amlodipine-Benazepril 10-20 mg] 1 each PO DAILY 05/05/20 Apixaban [Eliquis] 5 mg PO BID #14 tablet 05/10/20 Ascorbic Acid [Vitamin C*] 500 mg PO TID #20 tablet 05/10/20 Atorvastatin Calcium [Lipitor] 40 mg PO BEDTIME #30 tab 05/10/20 Furosemide [Lasix] 20 mg PO BID #20 tablet 05/10/20 Hydralazine [Apresoline*] 25 mg PO TID #60 tab 05/10/20 Metoprolol Succinate [Toprol Xl*] 50 mg PO DAILY #30 tab 05/10/20 Multivit,Ther Iron,Ca,FA & Min [Centrum Tablet*] 1 tab PO DAILY #30 tab 05/10/20 Spironolactone [Aldactone*] 25 mg PO BID #30 tab 05/10/20 Zinc Sulfate [Zinc Sulfate*] 220 mg PO DAILY #10 cap 05/10/20 predniSONE [Prednisone] 20 mg PO BID #20 tablet 05/10/20 New Medications: Spironolactone [Aldactone*] 25 mg PO BID #30 tab Hydralazine [Apresoline*] 25 mg PO TID #60 tab Multivit,Ther Iron,Ca,FA & Min [Centrum Tablet*] 1 tab PO DAILY #30 tab Apixaban [Eliquis] 5 mg PO BID #14 tablet Furosemide [Lasix] 20 mg PO BID #20 tablet Atorvastatin Calcium [Lipitor] 40 mg PO BEDTIME #30 tab predniSONE [Prednisone] 20 mg PO BID #20 tablet Metoprolol Succinate [Toprol Xl*] 50 mg PO DAILY #30 tab Ascorbic Acid [Vitamin C*] 500 mg PO TID #20 tablet Zinc Sulfate [Zinc Sulfate*] 220 mg PO DAILY #10 cap Followup: Jose Alatorre MD [ACTIVE - CAN ADMIT] - Time spent managing pt's care (in minutes): 45
[2020-05-10 18:11] VITALS: BP 148/85; TEMP 97.2
[2020-05-11] MEDS ORDERED: AMLODIPINE 10 MG TAB PO SCH (09:00)
== END 2020-05-10 19:25 | disposition home or self-care (01) | DRG 871 ==
LOC: ER 21:35 → ERHOLD 05-05 00:48 → 3RD-ICU 05-05 13:09
PROVIDERS: ADMIT Internal Medicine; ATTEND Family Medicine
PROC: 8E0ZXY6 Isolation (ICD-10-PCS; 2020-05-05)
PROC: 30233K1 Transfusion of Nonautologous Frozen Plasma into Peripheral Vein, Percutaneous Approach (ICD-10-PCS; principal; 2020-05-06)
PROC: 3E03329 Introduction of Other Anti-infective into Peripheral Vein, Percutaneous Approach (ICD-10-PCS; 2020-05-06)
DX: A41.89 Other specified sepsis (principal); U07.1 COVID-19; J12.89 Other viral pneumonia; J96.21 Acute and chronic respiratory failure with hypoxia; Z68.42 Body mass index [BMI] 45.0-49.9, adult; R65.20 Severe sepsis without septic shock; I10 Essential (primary) hypertension; E66.9 Obesity, unspecified
CPT/HCPCS: 36415; 71045; 71275; 80048; 80053; 80076; 81003; 81015; 82150; 82550; 82553; 82565; 82728; 82805; 82947; 83605; 83690; 83735; 83880; 84100; 84145; 84484; 85025; 85379; 85610; 85730; 86140; 86850; 86900; 86901; 86927; 87040; 87086; 87088; 93005; 94640; 94660; 94760; 96365; 96367; 96375; 99285; J0360; J0456; J0696; J1100; J1650; J1940; J2920; J2930; J7030; J7050; Q9967

== ENCOUNTER 2021-08-26 23:07 | Emergency (ER) | payer BC ==
--- OUTSIDE RECORDS SUMMARY | 2021-08-26 23:10 | XMS REPORT | Continuity of Care Document ---
:1985 Author Organization [facility] t Address [address] [place] [address] Care Team Providers Name Role Phone Eduardo FRANKLIN, A Primary Care Physician OUSMANE Attending Clinician Unavailable Hardy ELLIOTT Attending Clinician Unavailable Vls-Lab Attending Clinician Unavailable Ousmane CHINA PAINTER Attending Clinician Kentrell COSME Attending Clinician Unavailable Kentrell COSME Attending Clinician Unavailable ALZJOSEPHI Attending Clinician Unavailable KEYON, A Attending Clinician Unavailable EDUARDO, Hortencia Attending Clinician Unavailable Laquita TOLLIVER Attending Clinician Unavailable Nurse, Pob Immunization Attending Clinician Unavailable Shruthi FRANKLIN M Attending Clinician Eduardo FRANKLIN A Attending Clinician Keara RIVAS M Attending Clinician Unavailable Nae TRIMBLE, A Attending Clinician Pob1, Care [facility] Attending Clinician Unavailable ANENE Attending Clinician Unavailable Doctor Unassigned, Name Attending Clinician Unavailable Payers Payer Name Policy Type Policy Number Effective Date Expiration Date S maru [facility] [id number] 2017 00:00:00 Problems Condition Condition Condition Status Onset Resolution Last Treating Co mments Source Name Details Category Date Date Treatment Clinician Date Severe Severe Disease Active Univers obstructiv obstructiv 06-13 it y of e sleep e sleep 00:00: [place] apnea apnea 00 [facility] Vitamin D Vitamin D Disease Active Uni vers deficiency deficiency 8-16 it y of 00:00: [place] 00 [facility] Branch Fatty Fatty Disease Active Univers liver liver 8-10 ity of 00:00: [place] 00 Medical Branch Hepatosple Hepatosple Disease Active U lupe nomegaly nomegaly 8-10 ity of 00:00: [place] 00 Medical Branch Phimosis Phimosis Disease Active Unive rs 7-26 ity of 00:00: [place] 00 Medical Branch Edema of Edema of Disease Active 2019-10 Unive rs both legs both legs 2-19 ity of 00:00: [place] [facility] 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 HSV1 Prediabete Prediabete Disease Active U foxers s s 2-06 ity of 00:00: [place] 00 Medical Branch Type 2 Type 2 Disease Active Univers diabetes diabetes 2-06 ity of mellitus mellitus 00:00: [place] with with 00 Medical microalbum microalbum Br anch inuria, inuria, without without long-term long-term current current use of use of insulin insulin Abnormal Abnormal Disease Active Unive rs LFTs LFTs 2-06 ity of (liver (liver 00:00: [place] function function 00 Medica l tests) tests) Branch Hyperchole Hyperchole Disease Active U lupe sterolemia sterolemia 2-06 it y of 00:00: [place] 00 Medical Branch Tachycardi Tachycardi Disease Active U foxers a a 2-06 ity of 00:00: [place] 00 Medical Branch Hypertensi Hypertensi Disease Active U lupe on on ity of [facility] Morbid Morbid Disease Active Univers obesity obesity ity of [facility] Allergies, Adverse Reactions, Alerts Allergy Allergy Status Severity Reaction(s) Onset Inactive Treating Comm ents Source Name Type Date Date Clinician NO KNOWN Drug Active Univers ALLERGIE Class ity of S [facility] Social History Social Habit Start Date Stop Date Quantity Comments Source Exposure to Not sure [facility] SARS-CoV-2 (event) Medica l Branch Alcohol intake 2021-08-01 2021-08-01 5.14 /d [facility] 00:00:00 00:00:00 Medical Branch Tobacco use and 2021-05-07 2021-05-07 Never used Universit y of [place] exposure 00:00:00 00:00:00 Medical Branch History of tobacco 2021-03-12 Smoker [facility] use 00:00:00 Medical Branch Sex Ass[birth year] At [birth year] [facility] 00:00:00 00:00:00 Medical Branch Smoking Status Start Date Stop Date Source Former smoker 2021-05-07 00:00:00 2021-05-07 00:00:00 [facility] Medical Branch Current some day 2020-09-30 00:00:00 [facility] smoker Medical Branch Medications Ordered Filled Start Stop Current Ordering Indication Dosage Frequency Signature Comments Components Source Medication Medication Date Date Medication? Clinician (SIG) Name Name metformin Yes [id number] 1000mg Take 2 Univers ER 500 mg 8-10 tablets by ity of 24 hr 00:00: mouth 2 [place] tablet 00 (two) Medical times Branch daily with meals. Cholecalcif Yes [id number] 2000U Take 1 Univers andrea, 8-10 capsule by ity of Vitamin D3, 00:00: mouth [place] (D3) 00 daily. Medical 50 mcg Take with Branch (2,000 food. unit) capsule Blood-Gluco Yes [id number] Check U nivers se Meter 8-10 glucose ity of Kit 00:00: once daily [place] 00 before Medical breakfast; Branch ICD-10 code E11.9 blood sugar 0 Yes [id number] Check U nivers diagnostic 8-10 glucose ity of (BLOOD 00:00: once daily [place] GLUCOSE 00 before Medical TEST) strip breakfast; Br anch ICD-10 code E11.9 Lancets 0 Yes [id number] Check Unive rs Misc 8-10 glucose ity of 00:00: once daily [place] 00 before Medical breakfast; Branch ICD-10 code E11.9 metformin 0 Yes [id number] 1000mg Take 2 Univers ER 500 mg 8-10 tablets by ity of 24 hr 00:00: mouth 2 [place] tablet 00 (two) Medical times [place] daily with meals. Cholecalcif 2020-0 Yes [id number] 2000U Take 1 Univers andrea, 8-10 capsule by ity of Vitamin D3, 00:00: mouth [place] (D3-1999) 00 daily. Medical 50 mcg Take with Branch (2,000 food. unit) capsule Blood-Gluco 2021-0 Yes [id number] Check U nivers se Meter 8-10 glucose ity of Kit 00:00: once daily [place] 00 before Medical breakfast; Branch ICD-10 code E11.9 blood sugar Yes [id number] Check U nivers diagnostic 8-10 glucose ity of (BLOOD 00:00: once daily [place] GLUCOSE 00 before Medical TEST) strip breakfast; Br anch ICD-10 code E11.9 Lancets Yes [id number] Check Unive rs Misc 8-10 glucose ity of 00:00: once daily [place] 00 before Medical breakfast; Branch ICD-10 code E11.9 nystatin Yes [id number] Apply to Univers 100,000 7-26 area(s) 2 ity of unit/gram 00:00: (two) [place] ointment 00 times Medical daily. Branch amLODIPine- Yes [id number] 1{capsu Take 1 Univers benazepriL 7-26 le} capsule by ity of 10-40 mg 00:00: mouth [place] per capsule 00 daily. Medica l DOSE Branch INCREASE. metoprolol Yes [id number] 75mg Take 1.5 Univers succinate 7-26 tablets by ity of XL 50 mg 24 00:00: mouth [place] hr tablet 00 daily. Medical DOSE Branch INCREASE. nystatin Yes [id number] Apply to Univers 100,000 7-26 area(s) 2 ity of unit/gram 00:00: (two) [place] ointment 00 times Medical daily. Branch amLODIPine- Yes [id number] 1{capsu Take 1 Univers benazepriL 7-26 le} capsule by ity of 10-40 mg 00:00: mouth [place] per capsule 00 daily. Medica l DOSE Branch INCREASE. metoprolol Yes [id number] 75mg Take 1.5 Univers succinate 7-26 tablets by ity of XL 50 mg 24 00:00: mouth [place] hr tablet 00 daily. Medical DOSE Branch INCREASE. amLODIPine- Yes Essential 1{capsu Take 1 Univers benazepriL 4-30 hypertensio le} capsule by ity of 5-20 mg per 00:00: n mouth [place] capsule 00 daily. Medical Branch metoprolol 2019-10 Yes Essential 50mg Take 1 Univers succinate 2-11 hypertensio tablet by ity of XL 50 mg 24 00:00: n mouth [place] hr tablet 00 daily. Medical [place] Immunizations Ordered Filled Immunization Date Status Comments Sourc e Immunization Name Name SARS-COV-2 COVID-19 2021-02-16 Completed Unive rsity of PFIZER VACCINE 00:00:00 [facility] SARS-COV-2 COVID-19 2021-02-16 Completed Unive rsity of PFIZER VACCINE 00:00:00 [facility] SARS-COV-2 COVID-19 2021-02-16 Completed Unive rsity of PFIZER VACCINE 00:00:00 [facility] SARS-COV-2 COVID-19 2021-01-23 Completed Unive rsity of PFIZER VACCINE 00:00:00 [facility] SARS-COV-2 COVID-19 2021-01-23 Completed Unive rsity of PFIZER VACCINE 00:00:00 [facility] SARS-COV-2 COVID-19 2021-01-23 Completed Unive rsity of PFIZER VACCINE 00:00:00 [facility] Vital Signs Vital Name Observation Time Observation Value Comments Source Systolic blood 2021-08-01 20:11:00 142 mm[Hg] Univer sity of pressure [facility] Diastolic blood 2021-08-01 20:11:00 98 mm[Hg] Unive rsity of pressure [facility] Heart rate 2021-08-01 20:11:00 103 /min [facility] Body temperature 2021-08-01 20:09:00 36.83 [facility] height 2021-08-01 20:09:00 185.4 cm [facility] Body weight 2021-08-01 20:09:00 153.407 kg [facility] BMI 2021-08-01 20:09:00 44.62 kg/m2 [facility] Oxygen saturation in 2021-08-01 20:09:00 97 /min [facility] Arterial blood by [place] [facility] Pulse oximetry Branch Procedures Procedure Date / Time Performed Performing Clinician [facility] e SARS-COV-2 COVID-19 2021-02-16 14:58:17 Doctor Unassigned, No Un iversity of [place] VACCINE,0.3ML,IM Name Medical Branch (PFIZER) Plan of Care Planned Activity Planned Date Details Comments Source Future Scheduled 2021-09-22 Depression screening Uni versity of [place] Test 00:00:00 (procedure) [code = Medical Branch [id number]] Future Scheduled 2021-06-13 INFLUENZA VACCINE Univer sity [facility] Test 00:00:00 (Season Ended) [code Medical Branch = INFLUENZA VACCINE (Season Ended)] Future Scheduled 2003-12-15 DTaP,Tdap,and Td Univers ity of [place] Test 00:00:00 Vaccines (1 - Tdap) Medical Branch [code = DTaP,Tdap,and Td Vaccines (1 - Tdap)] Future Scheduled 1991 PNEUMOCOCCAL 0-64 Univer sity [facility] Test 00:00:00 YEARS COMBINED SERIES Medica l Branch (1 of 1 - PPSV23) [code = PNEUMOCOCCAL 0-64 YEARS COMBINED SERIES (1 of 1 - PPSV23)] Encounters Start End Encounter Admission Attending Care Care Encounter Source Date/Time Date/Time Type Type Clinicians Facility Department ID 2021-09-05 2021-09-05 Outpatient Zenon ROMEO [facility] [id number] Univers 15:30:00 15:30:00 [id number] 2021-08-17 2021-08-17 Outpatient Zenon ELLIOTT [facility] [id number] Univers 08:40:00 08:40:00 [facility] 2021-08-17 2021-08-17 Outpatient R [facility] [id number] Univers 08:40:00 08:40:00 [id number] [facility] 2021-08-09 2021-08-09 Outpatient Zenon ROMEO [facility] [id number] Univers 08:00:00 08:00:00 MARIO [id number] ity [facility] 2021-08-09 2021-08-09 Outpatient Zenon ROMEO [facility] [id number] Univers 00:00:00 00:00:00 MARIO irma [facility] 2021-08-01 2021-08-01 Clinical Sales Consultant Vls-Lab [facility] [id number] Univers 16:32:46 16:47:46 Visit Mario Romeo SPECIALTY [id number] ity of CARE [id number] [facility] CENTER AT [phone] Ms ale DON [address] [facility] 2021-08-01 2021-08-01 Outpatient R OUSMANE [facility] [id number] Univers 15:00:00 16:34:25 [facility] 2021-08-01 2021-08-01 Office Ousmane [facility] [id number] Univers 14:57:40 15:42:40 Visit Mario SPECIALTY [id number] ity of CARE [id number] [facility] AT [phone] Ms ale DON [address] [place] [address] 2021-08-01 2021-08-01 Outpatient Zenon ROMEO [facility] [id number] Univers 15:00:00 15:00:00 MARIO [id number] [facility] 2021-07-18 2021-07-18 Outpatient R POPEYE COSME [facility] [id number] Univers 15:40:00 15:40:00 POPEYE COSME [id number] [facility] 2021-06-28 2021-06-28 Outpatient R JERRY [facility] [id number] Univers 09:30:00 09:30:00 MICHELLE [id number] [facility] 2021-06-28 2021-06-28 Outpatient R JERRY [facility] [id number] Univers 09:30:00 09:30:00 [facility] 2021-06-26 2021-06-26 Outpatient R OUSMANE [facility] [id number] Univers 09:15:00 09:15:00 MARIO [id number] [facility] 2021-06-26 2021-06-26 Outpatient R OUSMANE [facility] [id number] Univers [facility]:15[facility] 2021-06-19 Outpatient Zenon TA [facility] [id number] Univers 09:30:00 09:30:00 NIKKI [id number] [facility] 2021-06-19 2021-06-19 Outpatient R KEYON [facility] [id number] Univers 09:30:00 09:30:00 NIKKI [facility] 2021-06-13 2021-06-13 Outpatient R POPEYE COSME [facility] [id number] Univers 13:40:00 13:40:00 POPEYE COSME [id number] 2021-06-13 2021-06-13 Outpatient R BLNAK COSMEWYHardy [facility] [id number] Univers 13:40:00 13:40:00 MARINABLANK CHAPARROWYHardy [facility] 2021-05-26 2021-05-26 Outpatient R [facility] [id number] Univers 09:00:00 09:00:00 [id number] [facility] 2021-05-24 2021-05-24 Outpatient R [facility] [id number] Univers 13:00:00 13:00:00 [id number] [facility] 2021-05-24 2021-05-24 Outpatient R MARINABLANK CHAPARROWYHardy [facility] [id number] Univers 13:00:00 13:00:00 MARINAANTHONY CHAPARROHardy [facility] 2021-05-22 2021-05-22 Outpatient R EDUARDO, [facility] [id number] Univers 10:30:00 10:30:00 WONDIFUL [id number] ity o f [facility] 2021-05-22 2021-05-22 Outpatient R EDUARDO [facility] [id number] Univers 10:30:00 10:30:00 WONDIFUL ity o f [facility] 2021-05-11 2021-05-11 Outpatient R [facility] [id number] Univers 08:00:00 08:00:00 [id number] [facility] 2021-05-11 2021-05-11 Outpatient R EDUARDO [facility] [id number] Univers 08:00:00 08:00:00 WONDIFUL ity o f [facility] 2021-05-07 2021-05-07 Outpatient R EDUARDO, [facility] [id number] Univers 13:15:00 13:15:00 WONDIFUL [id number] ity o f [facility] 2021-05-07 2021-05-07 Outpatient R EDUARDO [facility] [id number] Univers 13:15:00 13:15:00 WONDIFUL ity o f [facility] 2021-03-20 2021-03-20 Outpatient R EDUARDO [facility] [id number] Univers 08:00:00 08:00:00 WONDIFUL [id number] ity o f [facility] 2021-03-20 2021-03-20 Outpatient R EDUARDO [facility] [id number] Univers 08:00:00 08:00:00 WONDIFUL ity o f [facility] 2021-02-16 2021-02-16 Outpatient R SHRUTHI [facility] [id number] Univers 10:00:00 10:00:00 KENNY [facility] 2021-01-23 2021-01-23 Outpatient [facility] [id number] Univers 14:20:00 14:20:00 [facility] 2020-10-25 2020-10-25 [facility] [id number] [id number] 00:00:00 00:00:00 Wondiful A [place] [id number] [place] [phone] 2020-09-29 2020-09-29 Outpatient [facility] [id number] Univers 08:40:00 08:40:00 [id number] [facility] 2020-09-29 2020-09-29 Outpatient Zenon COSME [facility] [id number] Univers 08:40:00 08:40:00 WONDIFUL ity o [facility] 2020-09-22 2020-09-22 [facility]ici [facility] [id number] 12:03:21 16:19:56 ne Visit Wondiful A Health [id number] [place] [id number] Professio [phone] [place] [address] Office [facility] One 2020-09-22 2020-09-22 Outpatient R EDUARDO [facility] [id number] Univers 16:00:00 16:00:00 WONDIFUL [id number] ity o f [facility] 2020-09-22 2020-09-22 Outpatient R EDUARDO [facility] [id number] Univers 16:00:00 16:00:00 WONDIFUL ity o f [facility] 2020-09-18 2020-09-18 [facility]isha [facility] [id number] 00:00:00 00:00:00 Wondiful A [place] [id number] [place] [id number] Professio [phone] 2020-09-12 2020-09-12 [facility] 1.2.840.114 [id number] 00:00:00 00:00:00 Wondiful A Health [id number] [place] [id number] Professio [phone] [address] One 2020-08-29 2020-08-29 Outpatient R [facility] [id number] Univers 09:20:00 09:20:00 [id number] ity [facility] 2020-08-29 2020-08-29 Outpatient R [facility] [id number] Univers 09:20:00 09:20:00 ity [facility] 2020-06-23 2020-06-23 Telemedici [facility] [id number] 14:23:10 16:37:31 ne Visit Wondiful A Health [id number] [place] [id number] Professio [phone] [place] [address] Office [facility] One 2020-06-23 2020-06-23 Outpatient R EDUARDO [facility] [id number] Univers 15:15:00 15:15:00 WONDIFUL [id number] ity o f [facility] 2020-06-23 2020-06-23 [facility] [id number] Univers 15:15:00 15:15:00 WONDIFUL ity o f [facility] 2020-06-21 2020-06-21 Outpatient R EDUARDO [facility] [id number] Univers 11:15:00 11:15:00 WONDIFUL ity o jeremie [facility] 2020-06-21 2020-06-21 Outpatient R EDUARDO [facility] [id number] Univers 11:15:00 11:15:00 WONDIFUL itirma o jeremie [facility] 2020-05-04 2020-05-04 Nurse Vinita Sarah [id number] 00:00:00 00:00:00 Triage CONSTAN[facility] [id number] HOSPITAL [id number] [id number] 2020-04-29 2020-04-29 [facility] [id number] 00:00:00 00:00:00 [facility] [id number] [place] [id number] Professio [phone] nal [facility] Office Building One 2020-04-27 2020-04-27 Urgent Pob1, Acute [facility] [id number] [id number] 15:17:23 16:46:39 [facility] Health [id number] [place] [id number] Professio [phone] nal [facility] Office Building One 2020-04-27 2020-04-27 Outpatient R [facility] [id number] Univers 15:00:00 15:00:00 [id number] bob [facility] 2020-04-27 2020-04-27 Outpatient R KAREN [facility] [id number] Univers 15:00:00 15:00:00 ESTHELA rojas [facility] 2020-04-27 2020-04-27 Letter Doctor NUNEZ [id number] [id number] 00:00:00 00:00:00 (Out) Unassigned, CONSTANZA [id number] [facility] [id number] [id number] [id number] 2020-04-27 2020-04-27 Letter Doctor NUNEZ [id number] [id number] 00:00:00 00:00:00 (Out) Unassigned, [place]STAN[place] [id number] [facility] [id number] [id number] 2020-01-18 2020-01-18 Outpatient R EDUARDO [facility] [id number] Univers 13:30:00 13:30:00 WONDIFUL [id number] ity o f [facility] 2020-01-18 2020-01-18 Outpatient R EDUARDO [facility] [id number] [facility] 13:30:00 13:30:00 WONDIFUL ity o [facility] 2020-01-18 2020-01-18 [facility]medici [facility] 1.2.840.114 [id number] 07:43:18 07:58:18 ne Visit Negrito A [place] [id number] [place] [id number] Professio [phone] [place] [address] Building 2020-01-17 2020-01-17 Telephone Eduardo [facility] 1.2.840.114 [id number] 00:00:00 00:00:00 Wondiful A [facility] [id number] [place] [id number] Professio [phone] [place] [address] Office Building One Results This patient has no known results.
[2021-08-27] MEDS ORDERED: TETANUS & DIPHTHERIA TOX,ADULT 0.5 ML VIAL ONE (00:19)
[2021-08-27] MEDS ORDERED: LIDOCAINE 2% W/EPI 1:200,000 MPF 20 ML VIAL IM ONE (00:24)
--- NOTE | 2021-08-27 01:10 | ER ---
Nurse's Notes [facility] Name: Gil Yarbrough Age: 35 yrs Sex: Male : 1985 Arrival Date: 08/26/2021 Time: 23:09 Bed 15 Private MD: Diagnosis: Laceration without foreign body of unspecified buttock, sequela-left Presentation: 08/26 23:51 Chief complaint: Patient states: Pt was in shower when slipped and fell against a broke vg1 ceramic soap barcenas. States the soap barcenas has a jagged edge and but Left buttocks. Pt states bleeding has not stopped. Pt also mentioned that has drank about 10 beers today from [id number]. Pt denies hitting head. Coronavirus screen: Vaccine status: Patient reports receiving the 2nd dose of the covid vaccine. Client denies travel out of the [place] in the last 14 days. Ebola Screen: Patient negative for fever greater than or equal to 101.5 degrees Fahrenheit, and additional compatible Ebola Virus Disease symptoms. Initial Sepsis Screen: Does the patient meet any 2 criteria? No. Patient's initial sepsis screen is negative. Does the patient have a suspected source of infection? No. Patient's initial sepsis screen is negative. Risk Assessment: Do you want to hurt yourself or someone else? Patient reports no desire to harm self or others. Onset of symptoms was August 26, 2021. 23:51 Method Of Arrival: Ambulatory [facility] 23:51 Acuity: BREANNE 3 vg1 Triage Assessment: 23:54 General: Appears in no apparent distress. uncomfortable, Behavior is cooperative. Pain: vg1 Complains of pain in left gluteus ilda Pain currently is 10 out of 10 on a pain scale. Historical: - Allergies: 23:54 No Known Allergies; vg1 - Home Meds: 23:54 Lisinopril Oral [Active]; Metformin Oral [Active]; Metoprolol Tartrate Oral [Active]; vg1 - PMHx: 23:54 COVID-19; Hypertension; Diabetes mellitus; vg1 - PSHx: 23:54 None; vg1 - Immunization history:: Client reports receiving the 2nd dose of the Covid vaccine. - Social history:: Smoking status: Patient denies any tobacco usage or history of. Patient/guardian denies using alcohol, street drugs, The patient lives with family. - Family history:: not pertinent. Screenin/15 00:08 Abuse screen: Denies threats or abuse. Nutritional screening: No deficits noted. fu Tuberculosis screening: No symptoms or risk factors identified. Fall Risk None identified. Assessment: 00:07 General: Appears in no apparent distress. Behavior is calm, cooperative, appropriate fu for age, Denies fever, feeling ill, fatigue, chills. Pain: Complains of pain in left gluteus ilda Pain does not radiate. Pain currently is 6 out of 10 on a pain scale. Quality of pain is described as aching, Pain began 1 hour ago. Neuro: Level of Consciousness is awake, alert, obeys commands, Oriented to person, place, time, situation, Telecommunicator Supervisor are equal bilaterally Moves all extremities. Gait is steady, Speech is normal, Facial symmetry appears normal. Respiratory: Respiratory effort is even, Respiratory pattern is regular. Derm: lacerated to left buttock. Vital Signs: 08/26 23:51 BP 119 / 66; Pulse 94; Resp 16; Temp 97.9; Pulse Ox 100% ; Weight 149.69 kg; Height 6 vg1 ft. 1 in. (185.42 cm); Pain 07/22; 08/27 00:30 BP 107 / 66; Pulse 95; Resp 16; Temp 97.8; Pulse Ox 96% on R/A; Pain 3/10; fu 01:00 BP 118 / 84; Pulse 90; Resp 16; Pulse Ox 96% on R/A; fu 08/26 23:51 Body Mass Index 43.54 (149.69 kg, 185.42 cm) vg1 ED Course: 08/26 23:09 Patient arrived in ED. ja2 23:45 Ankita Wallace MD is Attending Physician. ma2 23:54 Triage completed. vg1 23:54 Arm band placed on. vg1 23:57 Jose Armando Cote, EVELYN is Primary Nurse. fu 08/27 01:19 Assist provider with laceration repair on left buttocks that was between 7.6 to 12.5 cm fu Set up tray. Performed by Ankita Wallace MD Dressed with 4X4s. 01:20 Patient did not have IV access during this emergency room visit. fu Administered Medications: 00:32 Drug: Tetanus-Diphtheria Toxoid Adult 0.5 ml {Breaker Layer: [employer]. Exp: fu 02/23/2023. Lot #: [id number]. } Route: IM; Site: right deltoid; 01:18 Follow up: Response: No adverse reaction fu 00:32 Drug: Clindamycin 300 mg Route: PO; fu 01:19 Follow up: Response: No adverse reaction fu Outcome: 01:09 Discharge ordered by MD. moore 01:23 Discharged to home ambulatory. fu 01:23 Condition: good 01:23 Discharge instructions given to patient, Instructed on discharge instructions, follow up and referral plans. Demonstrated understanding of instructions, follow-up care, Prescriptions given X 2. 01:24 Patient left the ED. fu Signatures: Jose Armando Cote, RN Ankita Washington MD MD ma2 Lashaun Marquez RN RN 1 Heather Chaves
--- NOTE | 2021-08-27 01:10 | EDPHYS ---
Physician Documentation [facility] Name: Gil Yarbrough Age: 35 yrs Sex: Male : 1985 Arrival Date: 08/26/2021 Time: 23:09 Bed 15 Private MD: ED Physician Ankita Wallace HPI: 08/27 00:13 This 35 yrs old Male presents to ER via Ambulatory with complaints of Fall ma2 Injury. 00:13 Onset: The symptoms/episode began/occurred suddenly, 1 hour(s) ago. Severity of ma2 symptoms: At their worst the symptoms were moderate, in the emergency department the symptoms are unchanged. The patient has not experienced similar symptoms in the past. Patient fell accidentally, mechanical fall sustaining laceration to left buttock,. Historical: - Allergies: 08/26 23:54 No Known Allergies; vg1 - Home Meds: 23:54 Lisinopril Oral [Active]; Metformin Oral [Active]; Metoprolol Tartrate Oral [Active]; vg1 - PMHx: 23:54 COVID-19; Hypertension; Diabetes mellitus; vg1 - PSHx: 23:54 None; vg1 - Immunization history:: Client reports receiving the 2nd dose of the Covid vaccine. - Social history:: Smoking status: Patient denies any tobacco usage or history of. Patient/guardian denies using alcohol, street drugs, The patient lives with family. - Family history:: not pertinent. ROS: 08/27 00:13 Constitutional: Negative for fever, chills, and weight loss. ma2 All other systems are negative. Exam: 00:13 Constitutional: This is a well developed, well nourished patient who is awake, alert, ma2 and in no acute distress. Head/Face: Normocephalic, atraumatic. Eyes: Pupils equal round and reactive to light, extra-ocular motions intact. Lids and lashes normal. Conjunctiva and sclera are non-icteric and not injected. Cornea within normal limits. Periorbital areas with no swelling, redness, or edema. ENT: Nares patent. No nasal discharge, no septal abnormalities noted. Tympanic membranes are normal and external auditory canals are clear. Oropharynx with no redness, swelling, or masses, exudates, or evidence of obstruction, uvula midline. Mucous membranes moist. Neck: Trachea midline, no thyromegaly or masses palpated, and no cervical lymphadenopathy. Supple, full range of motion without nuchal rigidity, or vertebral point tenderness. No Meningismus. Chest/axilla: Normal chest wall appearance and motion. Nontender with no deformity. No lesions are appreciated. Cardiovascular: Regular rate and rhythm with a normal S1 and S2. No gallops, murmurs, or rubs. Normal PMI, no JVD. No pulse deficits. Respiratory: Lungs have equal breath sounds bilaterally, clear to auscultation and percussion. No rales, rhonchi or wheezes noted. No increased work of breathing, no retractions or nasal flaring. Abdomen/GI: Soft, non-tender, with normal bowel sounds. No distension or tympany. No guarding or rebound. No evidence of tenderness throughout. Back: No spinal tenderness. No costovertebral tenderness. Full range of motion. Skin: Warm, dry with normal turgor. Normal color with no rashes, no lesions, and no evidence of cellulitis. MS/ Extremity: Left buttock laceration, linear, superficial, 10 inches. Pulses equal, no cyanosis. Neurovascular intact. Full, normal range of motion. Neuro: Awake and alert, GCS 15, oriented to person, place, time, and situation. Cranial nerves II-XII grossly intact. Motor strength 5/5 in all extremities. Sensory grossly intact. Cerebellar exam normal. Normal gait. Vital Signs: 08/26 23:51 BP 119 / 66; Pulse 94; Resp 16; Temp 97.9; Pulse Ox 100% ; Weight 149.69 kg; Height 6 vg1 ft. 1 in. (185.42 cm); Pain 07/22; 08/27 00:30 BP 107 / 66; Pulse 95; Resp 16; Temp 97.8; Pulse Ox 96% on R/A; Pain /10; fu 01:00 BP 118 / 84; Pulse 90; Resp 16; Pulse Ox 96% on R/A; fu 08/26 23:51 Body Mass Index 43.54 (149.69 kg, 185.42 cm) vg1 Laceration: 00:13 Wound Repair of 20cm ( 7.9in ) subcutaneous laceration to buttocks. Linear shaped.. ma2 Distal neuro/vascular/tendon intact. Anesthesia: Local anesthetic administered with 30 mls of 1% lidocaine. Skin closed with 28 1-0 [place] using simple sutures and sterile technique. Dressed with 4x4's. Patient tolerated well. MDM: 00:13 Differential diagnosis: abrasion, contusion, laceration, sprain, strain. ma2 00:13 Data reviewed: vital signs, nurses notes, EMS record. Counseling: I had a detailed ma2 discussion with the patient and/or guardian regarding: the historical points, exam findings, and any diagnostic results supporting the discharge/admit diagnosis, the presence of at least one elevated blood pressure reading (>120/80) during this emergency department visit, the need for outpatient follow up. Response to treatment: the patient's symptoms have markedly improved after treatment. 01:09 Patient medically screened. ma2 Administered Medications: 00:32 Drug: Tetanus-Diphtheria Toxoid Adult 0.5 ml {Lead Cytogenetic Technologist: [employer]. Exp: fu 02/23/2023. Lot #: [id number]. } Route: IM; Site: right deltoid; 01:18 Follow up: Response: No adverse reaction fu 00:32 Drug: Clindamycin 300 mg Route: PO; fu 01:19 Follow up: Response: No adverse reaction fu Disposition Summary: 08/27/21 01:09 Discharge Ordered Location: Home ma2 Condition: Stable ma2 Diagnosis - Laceration without foreign body of unspecified buttock, sequela - left ma2 Followup: ma2 - With: Private Physician - When: Tomorrow - Reason: If symptoms return, Continuance of care Discharge Instructions: - Discharge Summary Sheet ma2 - Laceration Care, Adult ma2 - Laceration Care, Adult, [id number] ma2 Forms: - Medication Reconciliation Form ma2 - Thank You Letter ma2 - Antibiotic Education ma2 - Prescription Opioid Use ma2 Prescriptions: - Clindamycin HCl 300 mg Oral Capsule - take 1 capsule by ORAL route every 6 hours for 10 days; 40 capsule; Refills: 0, ma2 Product Selection Permitted - Diclofenac Sodium 75 mg Oral Tablet Sustained Release - take 1 tablet by ORAL route 2 times per day; 30 tablet; Refills: 0, Product ma2 Selection Permitted Signatures: Jose Armando Cote RN RN Ankita Wallace MD MD nd2 Lashaun Marquez RN RN 1 Corrections: (The following items were deleted from the chart) 01:06 00:13 Wound Repair of 20cm ( 7.9in ) subcutaneous laceration to buttocks. Linear ma2 shaped.. Distal neuro/vascular/tendon intact. Anesthesia: Local anesthetic administered with 30 mls of 1% lidocaine. Skin closed with 20 1-0 [place] using simple sutures and sterile technique. Dressed with 4x4's. Patient tolerated well. ma2
[2021-08-27 01:49] VITALS: TEMP 97.8; O2SAT 96
[2021-08-27 01:50] VITALS: BP 118/84
== END 2021-08-27 01:24 | disposition home or self-care (01) ==
LOC: ER 23:07
PROC: 0JQ90ZZ Repair Buttock Subcutaneous Tissue and Fascia, Open Approach (ICD-10-PCS; principal; 2021-08-27)
DX: S31.821A Laceration without foreign body of left buttock, initial encounter (principal); W19.XXXA Unspecified fall, initial encounter; E11.9 Type 2 diabetes mellitus without complications; I10 Essential (primary) hypertension; Z23 Encounter for immunization; Z86.16 Personal history of COVID-19
CPT/HCPCS: 90471; 90714; 99283

== ENCOUNTER 2021-09-09 13:31 | Emergency (ER) | payer BC ==
--- OUTSIDE RECORDS SUMMARY | 2021-09-09 13:35 | XMS REPORT | Continuity of Care Document ---
:1985 Author Organization [facility] t Address [address] [place] [address] Care Team Providers Name Role Phone Eduardo FRANKLIN, A Primary Care Physician OUSMANE Attending Clinician Unavailable Hardy ELLIOTT Attending Clinician Unavailable Vls-Lab Attending Clinician Unavailable Ousmane RETAIL SERVICE SPECIALIST Attending Clinician Kentrell COSME Attending Clinician Unavailable [...] Number Effective Date Expiration Date S maru [facility] [id number] 2017 00:00:00 Problems Condition Condition Condition Status Onset Resolution Last Treating Co mments Source Name Details Category Date Date Treatment Clinician Date Severe Severe Disease Active Univers obstructiv obstructiv 06-13 it y of e sleep e sleep 00:00: [place] apnea apnea 00 [facility] Vitamin D Vitamin D Disease Active Uni vers deficiency deficiency 8-16 it y of 00:00: [place] 00 [facility] Branch Fatty Fatty Disease Active Univers liver [...] Active U lupe on on ity of [facility] Morbid Morbid Disease Active Univers obesity obesity ity of [facility] Allergies, Adverse Reactions, Alerts Allergy Allergy Status Severity Reaction(s) Onset Inactive Treating Comm ents Source Name Type Date Date Clinician NO KNOWN Drug Active Univers ALLERGIE Class ity of S [facility] Social History Social Habit Start Date Stop Date Quantity Comments Source Exposure to Not sure [facility] SARS-CoV-2 (event) Medica l Branch Alcohol intake 2021-08-01 2021-08-01 5.14 /d [facility] 00:00:00 00:00:00 Medical Branch Tobacco use and 2021-05-07 2021-05-07 Never used [facility] [place] exposure 00:00:00 00:00:00 Medical Branch History of tobacco 2021-03-12 Smoker [facility] use 00:00:00 Medical Branch Sex Ass[birth year] [facility] 00:00:00 00:00:00 Medical Branch Smoking Status Start Date Stop Date Source Former smoker 2021-05-07 00:00:00 2021-05-07 00:00:00 [facility] Medical Branch Current some day 2020-09-30 00:00:00 [facility] smoker Medical Branch Medications Ordered Filled Start Stop Current Ordering Indication Dosage Frequency Signature Comments Components Source Medication Medication Date Date Medication? Clinician (SIG) Name Name metformin Yes [id number] 1000mg Take 2 Univers ER 500 mg 8-10 tablets by ity of 24 hr 00:00: mouth 2 [place] tablet 00 (two) Medical times Branch daily with meals. Cholecalcif Yes [id number] 2000U Take 1 Univers andrea, 8-10 capsule by ity of Vitamin D3, 00:00: mouth [place] (D3) 00 daily. Medical 50 mcg Take with Branch (2,000 food. unit) capsule Blood-Gluco Yes [id number] Check U nivers se Meter 8-10 glucose ity of Kit 00:00: once daily [place] 00 before Medical breakfast; Branch ICD-10 code E11.9 blood sugar 0 Yes [id number] Check U nivers diagnostic 8-10 glucose ity of (BLOOD 00:00: once daily [place] GLUCOSE 00 before Medical TEST) strip breakfast; Br anch ICD-10 code E11.9 Lancets 0 Yes [id number] Check Unive rs Misc 8-10 glucose ity of 00:00: once daily [place] 00 before Medical breakfast; Branch ICD-10 code E11.9 metformin 0 Yes [id number] 1000mg Take 2 Univers ER 500 mg 8-10 tablets by ity of 24 hr 00:00: mouth 2 [place] tablet 00 (two) Medical times [place] daily with meals. Cholecalcif 2020-0 Yes [id number] 2000U Take 1 Univers andrea, 8-10 capsule by ity of Vitamin D3, 00:00: mouth [place] (D3-1999) 00 daily. Medical 50 mcg Take with Branch (2,000 food. unit) capsule Blood-Gluco 2021-0 Yes [id number] Check U nivers se Meter 8-10 glucose ity of Kit 00:00: once daily [place] 00 before Medical breakfast; Branch ICD-10 code E11.9 blood sugar Yes [id number] Check U nivers diagnostic 8-10 glucose ity of (BLOOD 00:00: once daily [place] GLUCOSE 00 before Medical TEST) strip breakfast; Br anch ICD-10 code E11.9 Lancets Yes [id number] Check Unive rs Misc 8-10 glucose ity of 00:00: once daily [place] 00 before Medical breakfast; Branch ICD-10 code E11.9 nystatin Yes [id number] Apply to Univers 100,000 7-26 area(s) 2 ity of unit/gram 00:00: (two) [place] ointment 00 times Medical daily. Branch amLODIPine- Yes [id number] 1{capsu Take 1 Univers benazepriL 7-26 le} capsule by ity of 10-40 mg 00:00: mouth [place] per capsule 00 daily. Medica l DOSE Branch INCREASE. metoprolol Yes [id number] 75mg Take 1.5 Univers succinate 7-26 tablets by ity of XL 50 mg 24 00:00: mouth [place] hr tablet 00 daily. Medical DOSE Branch INCREASE. nystatin Yes [id number] Apply to Univers 100,000 7-26 area(s) 2 ity of unit/gram 00:00: (two) [place] ointment 00 times Medical daily. Branch amLODIPine- Yes [id number] 1{capsu Take 1 Univers benazepriL 7-26 le} capsule by ity of 10-40 mg 00:00: mouth [place] per capsule 00 daily. Medica l DOSE Branch INCREASE. metoprolol Yes [id number] 75mg Take 1.5 Univers succinate 7-26 tablets [...] mouth [place] hr tablet 00 daily. Medical [place] Immunizations Ordered Filled Immunization Date Status Comments Sourc e Immunization Name Name SARS-COV-2 COVID-19 2021-02-16 Completed Unive rsity of PFIZER VACCINE 00:00:00 [facility] SARS-COV-2 COVID-19 2021-02-16 Completed Unive rsity of PFIZER VACCINE 00:00:00 [facility] SARS-COV-2 COVID-19 2021-02-16 Completed Unive rsity of PFIZER VACCINE 00:00:00 [facility] SARS-COV-2 COVID-19 2021-01-23 Completed Unive rsity of PFIZER VACCINE 00:00:00 [facility] SARS-COV-2 COVID-19 2021-01-23 Completed Unive rsity of PFIZER VACCINE 00:00:00 [facility] SARS-COV-2 COVID-19 2021-01-23 Completed Unive rsity of PFIZER VACCINE 00:00:00 [facility] Vital Signs Vital Name Observation Time Observation Value Comments Source Systolic blood 2021-08-01 20:11:00 142 mm[Hg] Univer sity of pressure [facility] Diastolic blood 2021-08-01 20:11:00 98 mm[Hg] Unive rsity of pressure [facility] Heart rate 2021-08-01 20:11:00 103 /min [facility] Body temperature 2021-08-01 20:09:00 36.83 [facility] height 2021-08-01 20:09:00 185.4 cm [facility] Body weight 2021-08-01 20:09:00 153.407 kg [facility] BMI 2021-08-01 20:09:00 44.62 kg/m2 [facility] Oxygen saturation in 2021-08-01 20:09:00 97 /min [facility] Arterial blood by [facility] Pulse oximetry Branch Procedures Procedure Date / Time Performed Performing Clinician [facility] e SARS-COV-2 COVID-19 2021-02-16 14:58:17 Doctor Unassigned, No Un [facility] [place] VACCINE,0.3ML,IM Name Medical Branch (PFIZER) Plan of Care Planned Activity Planned Date Details Comments Source Future Scheduled 2021-09-22 Depression screening Uni versity [facility] [place] Test 00:00:00 (procedure) [code = Medical Branch [id number]] Future Scheduled 2021-06-13 INFLUENZA VACCINE Univer sity [facility] Test 00:00:00 (Season Ended) [code Medical Branch = INFLUENZA VACCINE (Season Ended)] Future Scheduled 2003-12-15 DTaP,Tdap,and Td Univers [facility]y of [place] Test 00:00:00 Vaccines (1 - Tdap) Medical Branch [code = DTaP,Tdap,and Td Vaccines (1 - Tdap)] Future Scheduled 1990 PNEUMOCOCCAL 0-64 Univer sity [facility] Test 00:00:00 YEARS COMBINED SERIES Medica l Branch (1 of 1 - PPSV23) [code = PNEUMOCOCCAL 0-64 YEARS COMBINED SERIES (1 of 1 - PPSV23)] Encounters Start End Encounter Admission Attending Care Care Encounter Source Date/Time Date/Time Type Type Clinicians Facility Department ID 2021-09-05 2021-09-05 Outpatient Zenon ROMEO [facility] [id number] Univers 15:30:00 15:30:00 MARIO [id number] [facility] 2021-08-17 2021-08-17 Outpatient Zenon ELLIOTT [facility] [id number] Univers 08:40:00 08:40:00 NIKO [facility] 2021-08-17 2021-08-17 Outpatient R [facility] [id number] Univers 08:40:00 08:40:00 [id number] [facility] 2021-08-09 2021-08-09 Outpatient Zenon ROMEO [facility] [id number] Univers 08:00:00 08:00:00 MARIO [id number] ity [facility] 2021-08-09 2021-08-09 Outpatient Zenon ROMEO [facility] [id number] Univers 00:00:00 00:00:00 MARIO irma [facility] 2021-08-01 2021-08-01 Rn Patient Care Vls-Lab [facility] [id number] Univers 16:32:46 16:47:46 Visit Mario Romeo SPECIALTY [id number] ity of CARE [id number] [facility] CENTER AT [phone] Or ale DON 353 [facility] 2021-08-01 2021-08-01 Outpatient R OUSMANE [facility] [id number] Univers 15:00:00 16:34:25 [facility] 2021-08-01 2021-08-01 Office Ousmane [facility] [id number] Univers 14:57:40 15:42:40 Visit Mario SPECIALTY [id number] ity of CARE [id number] [facility] AT [phone] Or ale DON [address] [place] [address] 2021-08-01 2021-08-01 Outpatient Zenon ROMEO [facility] [id number] Univers 15:00:00 15:00:00 MARIO [id number] [facility] 2021-07-18 2021-07-18 Outpatient R POPEYE COSME [facility] [id number] Univers 15:40:00 15:40:00 POPEYE COSME [id number] [facility] 2021-06-28 2021-06-28 Outpatient R JERRY [facility] [id number] Univers 09:30:00 09:30:00 MICHELLE [id number] [facility] 2021-06-28 2021-06-28 Outpatient R JERRY [facility] [id number] Univers 09:30:00 09:30:00 MIC[facility]LE [facility] 2021-06-26 2021-06-26 Outpatient R OUSMANE [facility] [id number] Univers 09:15:00 09:15:00 MARIO [id number] [facility] 2021-06-26 2021-06-26 Outpatient R OUSMANE [facility] [id number] Univers 09:15[facility] 2021-06-19 Outpatient Zenon TA [facility] [id number] Univers 09:30:00 09:30:00 NIKKI [id number] [facility] 2021-06-19 2021-06-19 Outpatient R KEYON [facility] [id number] Univers 09:30:00 09:30:00 NIKKI [facility] 2021-06-13 2021-06-13 Outpatient R POPEYE COSME [facility] [id number] Univers 13:40:00 13:40:00 POPEYE COSME [id number] [facility] 2021-06-13 2021-06-13 Outpatient R BLANK COMSEOHHardy [facility] [id number] Univers 13:40:00 13:40:00 MARINABLANK CHAPARROOHHardy [facility] 2021-05-26 2021-05-26 Outpatient R [facility] [id number] Univers 09:00:00 09:00:00 [id number] [facility] 2021-05-24 2021-05-24 Outpatient R [facility] [id number] Univers 13:00:00 13:00:00 [id number] [facility] 2021-05-24 2021-05-24 Outpatient R MARINABLANK CHAPARROOHHardy [facility] [id number] Univers 13:00:00 13:00:00 MARINAANTHONY CHAPARROHardy [facility] 2021-05-22 2021-05-22 Outpatient R EDUARDO, [facility] [id number] Univers 10:30:00 10:30:00 WONDIFUL [id number] ity o f [facility] 2021-05-22 2021-05-22 Outpatient R EDUARDO [facility] [id number] Univers 10:30:00 10:30:00 WONDIFUL ity o f [facility] 2021-05-11 2021-05-11 Outpatient R [facility] [id number] Univers 08:00:00 08:00:00 [id number] [facility] 2021-05-11 2021-05-11 Outpatient R EDUARDO [facility] [id number] Univers 08:00:00 08:00:00 WONDIFUL ity o f [facility] 2021-05-07 2021-05-07 Outpatient R EDUARDO, [facility] [id number] Univers 13:15:00 13:15:00 WONDIFUL [id number] ity o f [facility] 2021-05-07 2021-05-07 Outpatient R EDUARDO [facility] [id number] Univers 13:15:00 13:15:00 WONDIFUL ity o f [facility] 2021-03-20 2021-03-20 Outpatient R EDUARDO [facility] [id number] Univers 08:00:00 08:00:00 WONDIFUL [id number] ity o f [facility] 2021-03-20 2021-03-20 Outpatient R EDUARDO [facility] [id number] Univers 08:00:00 08:00:00 WONDIFUL ity o f [facility] 2021-02-16 2021-02-16 Outpatient R SHRUTHI [facility] [id number] Univers 10:00:00 10:00:00 KENNY [facility] 2021-01-23 2021-01-23 Outpatient [facility] [id number] Univers 14:20:00 14:20:00 [facility] 2020-10-25 2020-10-25 [facility] [id number] 00:00:00 00:00:00 Wondiful A [place] [id number] [place] [phone] 2020-09-29 2020-09-29 Outpatient [facility] [id number] Univers 08:40:00 08:40:00 [id number] [facility] 2020-09-29 2020-09-29 Outpatient Zenon COSME [facility] [id number] Univers 08:40:00 08:40:00 WONDIFUL ity o [facility] 2020-09-22 2020-09-22 [facility]medici [facility] [id number] 12:03:21 16:19:56 ne Visit Wondiful A Health [id number] [place] [id number] Professio [phone] [place] [address] Office [facility] 2020-09-22 2020-09-22 Outpatient R EDUARDO [facility] [id number] Univers 16:00:00 16:00:00 WONDIFUL [id number] ity o f [facility] 2020-09-22 2020-09-22 Outpatient R EDUARDO [facility] [id number] Univers 16:00:00 16:00:00 WONDIFUL ity o f [facility] 2020-09-18 2020-09-18 [facility] [id number] 00:00:00 00:00:00 Wondiful A [place] [id number] [place] [phone] 2020-09-12 2020-09-12 [facility] 1.2.840.114 [id number] 00:00:00 00:00:00 Wondiful A Health [id number] [place] [id number] Professio [phone] [address] One 2020-08-29 2020-08-29 Outpatient R [facility] [id number] Univers 09:20:00 09:20:00 [id number] ity [facility] 2020-08-29 2020-08-29 Outpatient R [facility] [id number] Univers 09:20:00 09:20:00 ity [facility] 2020-06-23 2020-06-23 Telemedici [facility] [id number] 14:23:10 16:37:31 ne Visit Wondiful A Health [id number] [place] [id number] Professio [phone] [place] [address] Office [facility] 2020-06-23 2020-06-23 Outpatient R EDUARDO [facility] [id number] Univers 15:15:00 15:15:00 WONDIFUL [id number] ity o f [facility] 2020-06-23 2020-06-23 [facility] [id number] Univers 15:15:00 15:15:00 WONDIFUL ity o f [facility] 2020-06-21 2020-06-21 Outpatient R EDUARDO [facility] [id number] Univers 11:15:00 11:15:00 WONDIFUL ity o jeremie [facility] 2020-06-21 2020-06-21 Outpatient R EDUARDO [facility] [id number] Univers 11:15:00 11:15:00 WONDIFUL itirma o jeremie [facility] 2020-05-04 2020-05-04 Nurse Vinita Sarah 1.2.840.114 [id number] 00:00:00 00:00:00 Triage [facility] [id number] [facility]PITAL [id number] 2020-04-29 2020-04-29 [facility]phone [facility] [id number] 00:00:00 00:00:[address] [facility] [id number] [place] [id number] Professio [phone] nal [facility] Office Building One 2020-04-27 2020-04-27 Urgent Pob1, Acute [facility] 1.2.840.114 [id number] 15:17:23 16:46:39 [facility] Health [id number] [place] [id number] Professio [phone] nal [facility] Office Building One 2020-04-27 2020-04-27 Outpatient R [facility] [id number] Univers 15:00:00 15:00:00 [id number] [facility] 2020-04-27 2020-04-27 Outpatient R KAREN [facility] [id number] Univers 15:00:00 15:00:00 ESTHELA rojas [facility] 2020-04-27 2020-04-27 Letter Doctor NUNEZ 1.2.840.114 [id number] 00:00:00 00:00:00 (Out) Unassigned, CONSTANZA [id number] [place] [facility] [id number] [id number] 2020-04-27 2020-04-27 Letter Doctor NUNEZ 1.2.840.114 [id number] 00:00:00 00:00:00 (Out) Unassigned, CONSTANZA [id number] [place] [facility] [id number] 2020-01-18 2020-01-18 Outpatient R EDUARDO [facility] [id number] Univers 13:30:00 13:30:00 WONDIFUL [id number] ity o f [facility] 2020-01-18 2020-01-18 Outpatient R EDUARDO [facility] [id number] [facility] 13:30:00 13:30:00 WONDIFUL ity o [facility] 2020-01-18 2020-01-18 Telemedici [facility] 1.2.840.114 [id number] 07:43:18 07:58:18 ne Visit Negrito A [place] [id number] [place] [id number] Professio [phone] [place] [address] Building 2020-01-17 2020-01-17 Telephone Eduardo [facility] 1.2.840.114 [id number] 00:00:00 00:00:[address] [facility] [id number] [place] [id number] Professio [phone] [place] [address] Office Building One Results This patient has no known results.
--- NOTE | 2021-09-09 14:14 | ER ---
Nurse's Notes [facility] Name: Gil Yarbrough Age: 35 yrs Sex: Male : 1985 Arrival Date: 09/09/2021 Time: 13:33 Bed 12 Private MD: Diagnosis: Encounter for removal of sutures-marya Presentation: 09/09 13:48 Chief complaint: Patient states: needs marya removed from left buttock. Coronavirus iw screen: At this time, the client does not indicate any symptoms associated with coronavirus-19. Ebola Screen: Patient negative for fever greater than or equal to 101.5 degrees Fahrenheit, and additional compatible Ebola Virus Disease symptoms Patient denies exposure to infectious person. Patient denies travel to an Ebola-affected area in the 21 days before illness onset. No symptoms or risks identified at this time. Initial Sepsis Screen: Does the patient meet any 2 criteria? No. Patient's initial sepsis screen is negative. Does the patient have a suspected source of infection? No. Patient's initial sepsis screen is negative. Risk Assessment: Do you want to hurt yourself or someone else? Patient reports no desire to harm self or others. 13:48 Method Of Arrival: Ambulatory iw 13:48 Acuity: BREANNE 4 iw 13:48 Onset of symptoms was September 09, 2021. iw Triage Assessment: 14:33 General: Appears in no apparent distress. Behavior is calm, cooperative. Pain: Denies iw pain. Historical: - Allergies: 13:48 No Known Allergies; iw - Home Meds: 13:48 lisinopril Oral [Active]; Metformin Oral [Active]; Metoprolol Tartrate Oral [Active]; iw - PMHx: 13:48 diabetes mellitus; Hypertension; iw Screenin:34 Abuse screen: Denies threats or abuse. Denies injuries from another. Nutritional iw screening: No deficits noted. Tuberculosis screening: No symptoms or risk factors identified. Fall Risk None identified. Assessment: 14:33 Reassessment: Patient appears in no apparent distress at this time. Patient and/or iw family updated on plan of care and expected duration. Pain level reassessed. Patient is alert, oriented x 3, equal unlabored respirations, skin warm/dry/pink. ED Course: 13:33 Patient arrived in ED. as 13:45 Edenilson Quiroz NP is PHCP. pm1 13:45 Allyson Pena MD is Attending Physician. pm1 13:48 Triage completed. iw 14:23 Jyoti Bucio, RN is Primary Nurse. iw 14:32 No provider procedures requiring assistance completed. Patient did not have IV access iw during this emergency room visit. 14:33 Arm band placed on. iw Administered Medications: No medications were administered Outcome: 14:13 Discharge ordered by . pm1 14:32 Discharged to home ambulatory. iw 14:32 Condition: good 14:33 Instructed on pr will need to be cleared by his family doctor before returning to work, iw will need to wait for steri-strips to fall off before returning to work 14:34 No charge visit due to suture removal. iw 14:35 Patient left the ED. iw Signatures: Ruby Toro as Jyoti Bucio, RN RN iw Edenilson Quiroz, YANI SENIOR QUALITY TECHNICIAN pm1
--- NOTE | 2021-09-09 14:14 | EDPHYS ---
Physician Documentation [facility] Name: Gli Yarbrough Age: 35 yrs Sex: Male : 1985 Arrival Date: 09/09/2021 Time: 13:33 Bed 12 Private MD: ED Physician Allyson Pena HPI: 09/09 14:10 This 35 yrs old Male presents to ER via Ambulatory with complaints of Staple pm1 Removal. 14:10 The patient has marya on the left gluteus ilda. pm1 14:10 Previous treatment: The patient was initially treated 13 day(s) ago, the care was pm1 rendered at [facility], Treatment type: The patient's original treatment included marya. Sutures/marya progress: The patient has no c/o's. The wound is well-healing with no redness, swelling, discharge, or dehiscence reported. The patient has not experienced similar symptoms in the past. The patient has not recently seen a physician. Sutures/marya progress: Patient has no complaints. The wound is well-healing with no redness swelling or discharge reported. Medial aspect of wound repair with dehiscence. No redness swelling or infection or discharge noted at dehiscence. Historical: - Allergies: 13:48 No Known Allergies; iw - Home Meds: 13:48 lisinopril Oral [Active]; Metformin Oral [Active]; Metoprolol Tartrate Oral [Active]; iw - PMHx: 13:48 diabetes mellitus; Hypertension; iw ROS: 14:10 Constitutional: Negative for fever, chills, and weight loss, Cardiovascular: Negative pm1 for chest pain, palpitations, and edema, Respiratory: Negative for shortness of breath, cough, wheezing, and pleuritic chest pain, MS/Extremity: Negative for injury and deformity. 14:10 Skin: Positive for of the left gluteus ilda, Laceration repair. 14:10 All other systems are negative. Exam: 14:10 Constitutional: This is a well developed, well nourished patient who is awake, alert, pm1 and in no acute distress. Head/Face: Normocephalic, atraumatic. 14:10 Cardiovascular: Exam negative for acute changes, Rate: normal, Rhythm: regular, Pulses: no pulse deficits are appreciated. 14:10 Respiratory: Exam negative for acute changes, respiratory distress, shortness of breath. 14:10 Abdomen/GI: Inspection: obese 14:10 Skin: Wound recheck: Staple laceration closure: the wound is healing well, no drainage, no erythema, no swelling, 1 inch dehiscence present at medial aspect of wound. 14:10 Neuro: Exam negative for acute changes, Orientation: is normal, Mentation: is normal, Motor: is normal, moves all fours. Procedures: 14:10 Suture/Staple removal: Removed 28 marya, from left gluteus ilda, site appears well pm1 healed, 1 inch of medial aspect with dehiscence without any signs of infection, dressed with steri -strip applied to dehiscence . Patient tolerated well. MDM: 13:45 Patient medically screened. pm1 14:10 Data reviewed: vital signs. Counseling: I had a detailed discussion with the patient pm1 and/or guardian regarding: the historical points, exam findings, and any diagnostic results supporting the discharge/admit diagnosis, the need for outpatient follow up, to return to the emergency department if symptoms worsen or persist or if there are any questions or concerns that arise at home. Administered Medications: No medications were administered Disposition: 09/10 09:24 Co-signature as Attending Physician, Allyson Pena MD I agree with the assessment and sp3 plan of care. Disposition Summary: 09/09/21 14:13 Discharge Ordered Location: Home pm1 Problem: new pm1 Symptoms: have improved pm1 Condition: Stable pm1 Diagnosis - Encounter for removal of sutures - marya pm1 Followup: pm1 - With: Emergency Department - When: As needed - Reason: Worsening of condition Followup: pm1 - With: Private Physician - When: 2 - 3 days - Reason: Recheck today's complaints, Continuance of care, Re-evaluation by your physician Discharge Instructions: - Discharge Summary Sheet pm1 - Suture Removal, Care After pm1 Forms: - Medication Reconciliation Form pm1 - Thank You Letter pm1 - Antibiotic Education pm1 - Work release form iw - Prescription Opioid Use pm1 Signatures: Jyoti Bucio RN RN Edenilson Ritchie, [employer] pm1 Allyson Pena MD MD sp3
== END 2021-09-09 14:35 | disposition home or self-care (01) ==
LOC: ER 13:31
DX: Z48.02 Encounter for removal of sutures (principal); E11.9 Type 2 diabetes mellitus without complications; I10 Essential (primary) hypertension